=== PATIENT | male | born 1955 | race Caucasian/White ===

== ENCOUNTER 2016-04-23 11:53 | Inpatient (IN) | payer BC ==
--- NOTE | ~2016-04-23 | CR72 ---
[facility] A Service of [facility] & [facility] RADIOLOGY TEXT RESULTS PATIENT: SABINA HEAD LOCATION: [place] [id number] : 57 UNIT #: [id number] AGE: [address]: Dacia Acuña MD SEX: M ORDER DR: [id number] [facility] [address] [place], [place] [address] [id number] I MR#: [id number] Acc #: [id number] NAME: SABINA HEAD. : 1955 SEX: M STUDY DATE/TIME: 04/25/2016 4:00 UNIT: [facility] ROOM: [facility] STUDY DESCRIPTION: CR Chest Single View Portable Attending Physician: Dacia Acuña M.D. Ordering Physician: Dave Rodarte M.D. Primary Care Physician: Dayami Suarez A.P.R.N. MEDICAL IMAGING REPORT This report is preliminary unless electronic signature is present EXAM Portable chest 2 views 04/25/2016 HISTORY Respiratory failure, shortness of breath, COPD exacerbation, intubated, symptoms for 2 days. Follow up infiltrates. Benign essential hypertension. Asthma. FINDINGS The heart is normal in size. Right arm approach PICC line tip is in the superior vena cava. Endotracheal tube is unchanged compared with 04/24/2016. The lungs are clear. There are no pleural effusions. IMPRESSION No significant interval change compared with 04/24/2016. Dictated by... Óscar Maher M.D. THIS IS AN ELECTRONICALLY VERIFIED REPORT Óscar Maher M.D. at 04/26/2016 3:22 AM KRT/ty TD: 04/25/2016 07:42 JOB #: [id number] MEDICAL IMAGING REPORT COPY
--- NOTE | ~2016-04-23 | EKG ---
PATIENT: SABINA HEAD UNIT #: [id number] Ventricular Rate: 104 BPM Atrial Rate: 104 BPM P-R Interval: 122 ms QRS Duration: 86 ms Q-T Interval: 338 ms QTC Calculation(Bezet): 444 ms P Franklin: 65 degrees Calculated R Franklin: 12 degrees Calculated T Franklin: 27 degrees Diagnosis Line: Sinus tachycardia Diagnosis Line: Otherwise normal ECG Diagnosis Line: When compared with ECG of 10-MAY-2016 06:32, Diagnosis Line: Premature atrial complexes are no longer Present Diagnosis Line: Confirmed by CLIFF RIOS MD ([id number]) on Diagnosis Line: 05/17/2016 4:05:36 PM INTERPRETING MD: BLANCA SAMUEL
--- NOTE | ~2016-04-23 | CR72 ---
[facility] A Service of [facility] & [facility] RADIOLOGY TEXT RESULTS PATIENT: SABINA HEAD LOCATION: [place] [address] : 57 UNIT #: [id number] AGE: [address]: Dacia Acuña MD SEX: M ORDER DR: [id number] [facility] [address] [place], [place] [address] [id number] I MR#: [id number] Acc #: [id number] NAME: SABINA HEAD. : 1955 SEX: M STUDY DATE/TIME: 04/28/2016 5:20 UNIT: [facility] ROOM: [facility] STUDY DESCRIPTION: CR Chest Single View Portable Attending Physician: Dacia Acuña M.D. Ordering Physician: Dave Rodarte M.D. Primary Care Physician: Dayami Suarez A.P.R.N. MEDICAL IMAGING REPORT This report is preliminary unless electronic signature is present EXAM Portable chest 04/28/2016 HISTORY Respiratory failure, intubated, follow up infiltrates. Shortness of breath. COPD exacerbation. Benign essential hypertension. Asthma. FINDINGS The cardiac and mediastinal structures are stable compared with 04/27/2016. There has been no change in the position of the life support equipment. The lungs are clear. There are no pleural effusions. IMPRESSION No interval change compared with 04/27/2016. Dictated by... Óscar Maher M.D. THIS IS AN ELECTRONICALLY VERIFIED REPORT Óscar Maher M.D. at 04/28/2016 10:16 PM BELINDA/deep TD: 04/28/2016 06:31 JOB #: [id number] MEDICAL IMAGING REPORT COPY
--- NOTE | ~2016-04-23 | CR72 ---
[facility] A Service of [facility] & [facility] RADIOLOGY TEXT RESULTS PATIENT: SABINA HEAD LOCATION: [place] [address] : 57 UNIT #: [id number] AGE: [address]: Dacia Acuña MD SEX: M ORDER DR: [id number] [facility] [address] [facility]. [place], [place] [address] [id number] I MR#: [id number] Acc #: [id number] NAME: SABINA HEAD : 1955 SEX: M STUDY DATE/TIME: 05/05/2016 05:27 UNIT: [facility] ROOM: [facility] STUDY DESCRIPTION: CR Chest Single View Portable Attending Physician: Dacia Acuña M.D. Ordering Physician: Yvan Lu M.D. Primary Care Physician: Dayami Suarez A.P.R.N. MEDICAL IMAGING REPORT This report is preliminary unless electronic signature is present EXAM Portable chest, 05/05 at 05:27 INDICATION COPD, pneumonia. Respiratory failure. FINDINGS AP portable chest is compared with 05/01/2016. Right arm PICC at the cavoatrial junction. The patient has been extubated. There is mild atelectasis in the bases, slightly increased. The lungs are otherwise clear and there is no pneumothorax. Dictated by... Mio Jin Jr., M.D. THIS IS AN ELECTRONICALLY VERIFIED REPORT Mio Jin Jr., M.D. at 05/06/2016 6:04 AM SHERRI/sridhar TD: 05/05/2016 08:12 JOB #: [id number] MEDICAL IMAGING REPORT COPY
--- NOTE | ~2016-04-23 | CR7 ---
[facility] A Service of [facility] & [facility] & [facility] RADIOLOGY TEXT RESULTS PATIENT: SABINA HEAD LOCATION: [address] : [birth year] UNIT #: [id number] AGE: [address]: Dacia Acuña MD SEX: M ORDER DR: [id number] [facility] [address] [place], [place] [address] [id number] I MR#: [id number] Acc #: [id number] NAME: SABINA HEAD : 1955 SEX: M STUDY DATE/TIME: 04/26/2016 11:38 UNIT: [facility] ROOM: [facility] STUDY DESCRIPTION: CR Abdomen Single AP View Attending Physician: Dacia Acuña M.D. Ordering Physician: Dacia Acuña M.D. Primary Care Physician: Dayami Suarez A.P.R.N. MEDICAL IMAGING REPORT This report is preliminary unless electronic signature is present EXAMINATION AP abdomen DATE 04/26/2016 HISTORY Dobbhoff placement. FINDINGS Dobbhoff tube is malpositioned with the radiopaque tip projecting over the expected location right mainstem bronchus. I called the patient's nurse Kerry regarding this prior to the time of this dictation. Referring physician is already aware and attempting to reposition. Probable minimal linear atelectasis in the left lung base. Right arm approach PICC extends to the lower SVC level and ET tube projects over the upper thoracic trachea. Dictated by... Wendy Whalen M.D. THIS IS AN ELECTRONICALLY VERIFIED REPORT Wendy Whalen M.D. at 04/27/2016 7:29 AM KATHRYN/george TD: 04/26/2016 13:32 JOB #: [id number] MEDICAL IMAGING REPORT COPY
--- NOTE | ~2016-04-23 | CR72 ---
[facility] A Service of [facility] & [facility] RADIOLOGY TEXT RESULTS PATIENT: SABINA HEAD LOCATION: [place] [address] : 57 UNIT #: [id number] AGE: [address]: Dacia Acuña MD SEX: M ORDER DR: [id number] [facility] [address]. [place], [place] [address] [id number] I MR#: [id number] Acc #: [id number] NAME: SABINA HEAD. : 1955 SEX: M STUDY DATE/TIME: 04/29/2016 4:35 UNIT: [facility] ROOM: [facility] STUDY DESCRIPTION: CR Chest Single View Portable Attending Physician: Dacia Acuña M.D. Ordering Physician: Dave Rodarte M.D. Primary Care Physician: Dayami Suarez A.P.R.N. MEDICAL IMAGING REPORT This report is preliminary unless electronic signature is present EXAM Portable chest 04/29/2016 HISTORY Shortness of breath and respiratory failure, intubated, COPD exacerbation. Symptoms for 6 days. Benign essential hypertension, asthma. FINDINGS The cardiac and mediastinal structures are stable compared with 04/28/2016. There has been no change in the position of the life support equipment. The lungs are clear. There are no pleural effusions. IMPRESSION No change compared with 04/28/2016. Dictated by... Óscar Maher M.D. THIS IS AN ELECTRONICALLY VERIFIED REPORT Óscar Maher M.D. at 04/29/2016 3:00 PM BELINDA/deep TD: 04/29/2016 07:06 JOB #: [id number] MEDICAL IMAGING REPORT COPY
--- NOTE | ~2016-04-23 | CR72 ---
[facility] A Service of [facility] & [facility] RADIOLOGY TEXT RESULTS PATIENT: SABINA HEAD LOCATION: [place] [address] : 56 UNIT #: [id number] AGE: [address]: Dacia Acuña MD SEX: M ORDER DR: [id number] [facility] [address] [place], [place] [address] [id number] I MR#: [id number] Acc #: [id number] NAME: SABINA HEAD : 1955 SEX: M STUDY DATE/TIME: 04/26/2016 11:42 UNIT: [facility] ROOM: [facility] STUDY DESCRIPTION: CR Chest Single View Portable Attending Physician: Dacia Acuña M.D. Ordering Physician: Dave Rodarte M.D. Primary Care Physician: Dayami Suarez A.P.R.N. MEDICAL IMAGING REPORT This report is preliminary unless electronic signature is present EXAM AP portable chest DATE: 04/26/2014 at 11:42 HISTORY Follow up Dobbhoff tube removal. COMPARISON AP portable chest 04/26/2016 at 11:13 FINDINGS ET tube tip remains in satisfactory position in the upper thoracic trachea. Right arm approach PICC tip remains in the lower SVC. Heart size is within normal limits. There may be minimal linear subsegmental atelectasis in the left base. No dense consolidation. No pleural effusion, pneumothorax. The Dobbhoff tube has been removed from the right mainstem bronchus since the AP abdomen radiograph 04/26/2016 at 11:38 IMPRESSION 1. The Dobbhoff tube has been removed from the right mainstem bronchus. No pneumothorax. 2. There may be minimal linear subsegmental atelectasis in the left base. No consolidation. Dictated by... Wendy Whalen M.D. THIS IS AN ELECTRONICALLY VERIFIED REPORT Wendy Whalen M.D. at 04/27/2016 7:29 AM [facility]/etienne TD: 04/26/2016 13:23 [facility] A Service of [facility] & [facility] RADIOLOGY TEXT RESULTS PATIENT: SABINA HEAD LOCATION: [address] : [birth year] UNIT #: [id number] AGE: [address]: Dacia Acuña MD SEX: M ORDER DR: JOB #: [id number] MEDICAL IMAGING REPORT COPY
--- NOTE | ~2016-04-23 | CR72 ---
[facility] A Service of [facility] & [facility] RADIOLOGY TEXT RESULTS PATIENT: SABINA HEAD LOCATION: [place] [id number] : 56 UNIT #: [id number] AGE: [address]: Dacia Acuña MD SEX: M ORDER DR: [id number] [facility] [address]. [place], [place] [address] [id number] I MR#: [id number] Acc #: [id number] NAME: SABINA HEAD. : 1955 SEX: M STUDY DATE/TIME: 04/26/2016 5:55 UNIT: [facility] ROOM: [facility] STUDY DESCRIPTION: CR Chest Single View Portable Attending Physician: Dacia Acuña M.D. Ordering Physician: Dave Rodarte M.D. Primary Care Physician: Dayami Suarez A.P.R.N. MEDICAL IMAGING REPORT This report is preliminary unless electronic signature is present EXAM Portable chest INDICATIONS 61-year-old male with respiratory failure. Follow up support lines and tubes. Compared with yesterday. FINDINGS Stable support lines and tubes. No new infiltrates. Heart size stable. IMPRESSION No significant change in appearance of the chest. Dictated by... Tim Whitfield M.D. THIS IS AN ELECTRONICALLY VERIFIED REPORT Tim Whitfield M.D. at 04/27/2016 4:05 PM ROME/etienne TD: 04/26/2016 07:13 JOB #: [id number] MEDICAL IMAGING REPORT COPY
--- NOTE | ~2016-04-23 | CR72 ---
[facility] A Service of [facility] RADIOLOGY TEXT RESULTS PATIENT: SABINA HEAD LOCATION: [facility] 305- : 56 UNIT #: [id number] AGE: [address]: Dacia Acuña MD SEX: M ORDER DR: [id number] [facility] [address]. [place], [place] [address] [id number] I MR#: [id number] Acc #: [id number] NAME: SABINA HEAD. : 1955 SEX: M STUDY DATE/TIME: 05/16/2016 8:44 UNIT: A U ROOM: 305 STUDY DESCRIPTION: CR Chest Single View Portable Attending Physician: Dacia Acuña M.D. Ordering Physician: Yvan Lu M.D. Primary Care Physician: Dayami Suarez A.P.R.N. MEDICAL IMAGING REPORT This report is preliminary unless electronic signature is present INDICATIONS Shortness of air. Pneumonia. Respiratory failure. EXAM Single portable AP view of the chest compared to 05/09/2016 and 05/07/2016. The right PICC remains in place. Heart and mediastinal contours are unchanged. There is a linear area of atelectasis or scarring in the left lower lobe, unchanged. There are no new airspace opacities. No pneumothorax or pleural effusion. IMPRESSION No significant change. There is a linear area of airspace opacity in the left lower lobe/lingula which is fairly similar to the prior study. Dictated by... Rj Cullen M.D. THIS IS AN ELECTRONICALLY VERIFIED REPORT Rj Cullen M.D. at 05/17/2016 8:18 AM BRIAN/etienne TD: 05/16/2016 14:59 JOB #: [id number] MEDICAL IMAGING REPORT COPY
--- NOTE | ~2016-04-23 | CR72 ---
[facility] A Service of [facility] & [facility] RADIOLOGY TEXT RESULTS PATIENT: SABINA HEAD LOCATION: [address] : 56 UNIT #: [id number] AGE: [address]: Dacia Acuña MD SEX: M ORDER DR: [id number] [facility] [address] [place], [place] [address] [id number] I MR#: [id number] Acc #: [id number] NAME: SABINA HEAD : 1955 SEX: M STUDY DATE/TIME: 05/09/2016 10:03 UNIT: [facility] ROOM: [facility] STUDY DESCRIPTION: CR Chest Single View Portable Attending Physician: Dacia Acuña M.D. Ordering Physician: Melissa Simental M.D. Primary Care Physician: Dayami Suarez A.P.R.N. MEDICAL IMAGING REPORT This report is preliminary unless electronic signature is present EXAM Portable chest. INDICATIONS Shortness of breath starting today. FINDINGS Comparison made to prior exam and compared with May 07, 2016. Right-sided PICC line extends into the superior vena cava. There is cardiomegaly and perhaps some mild vascular congestion. Weighted enteric feeding tube is seen and extends into the stomach. There is persistent right basilar consolidation and some left basilar atelectasis. Small right pleural effusion is noted. No pneumothorax is seen and right-sided PICC line extends into the superior vena cava. Overall I think the appearance is probably stable when compared to the prior study. Dictated by... Tennille Loera M.D. THIS IS AN ELECTRONICALLY VERIFIED REPORT Tennille Loera M.D. at 05/09/2016 1:15 PM AFF/dj TD: 05/09/2016 12:25 JOB #: [id number] MEDICAL IMAGING REPORT COPY
--- NOTE | ~2016-04-23 | CT71 ---
[facility] A Service of [facility] RADIOLOGY TEXT RESULTS PATIENT: SABINA HEAD LOCATION: [place] [id number] : 56 UNIT #: [id number] AGE: [address]: Dacia Acuña MD SEX: M ORDER DR: [id number] [place] [id number] [facility]. [place], [place] [address] [id number] I MR#: [id number] Acc #: [id number] NAME: SABINA HEAD. : 1955 SEX: M STUDY DATE/TIME: 04/30/2016 17:24 UNIT: [facility] ROOM: [facility] STUDY DESCRIPTION: CT Head Wo Contrast Attending Physician: Dacia Acuña M.D. Ordering Physician: Dacia Acuña M.D. Primary Care Physician: Dayami Suarez A.P.R.N. MEDICAL IMAGING REPORT This report is preliminary unless electronic signature is present EXAM CT of the head without contrast performed on 04/30/2016 HISTORY 61-year-old male with mechanical ventilation not following commands starting today. TECHNIQUE This CT exam was performed with one or more of the following radiation dose reduction techniques: automatic control, adjustment of mA and/or kV according to patient size, and iterative reconstruction. FINDINGS There is motion artifact but no midline shift, mass effect or acute hemorrhage is appreciated. No extraaxial fluid collection is noted. The osseous skull is intact and the paranasal sinuses and mastoid air cells show some chronic sinus mucosal thickening in the ethmoid, sphenoid and right maxillary sinus. An endotracheal tube is in place. IMPRESSION 1. No acute intracranial abnormality but motion artifact is present. 2. Intact skull. 3. Chronic sinus disease. Dictated by... Crow Lowery M.D. THIS IS AN ELECTRONICALLY VERIFIED REPORT Crow Lowery M.D. at 05/01/2016 2:39 PM RP/rnr TD: 05/01/2016 01:58 JOB #: [id number] [facility] A Service of [facility] RADIOLOGY TEXT RESULTS PATIENT: SABINA HEAD LOCATION: [address] : 56 UNIT #: [id number] AGE: [address]: Dacia Acuña MD SEX: M ORDER DR: MEDICAL IMAGING REPORT COPY
--- NOTE | ~2016-04-23 | CR72 ---
[facility] A Service of [facility] & [facility] RADIOLOGY TEXT RESULTS PATIENT: SABINA HEAD LOCATION: [place] [address] : 56 UNIT #: [id number] AGE: [address]: Dacia Acuña MD SEX: M ORDER DR: [id number] [facility] [address] [facility]. [place], [place] [address] [id number] I MR#: [id number] Acc #: [id number] NAME: SABINA HEAD. : 1955 SEX: M STUDY DATE/TIME: 04/27/2016 2:24 UNIT: [facility] ROOM: [facility] STUDY DESCRIPTION: CR Chest Single View Portable Attending Physician: Dacia Acuña M.D. Ordering Physician: Dave Rodarte M.D. Primary Care Physician: Dayami Suarez A.P.R.N. MEDICAL IMAGING REPORT This report is preliminary unless electronic signature is present EXAM Portable chest, 04/27/2016 HISTORY Shortness of breath, COPD exacerbation, respiratory failure for 4 days, intubated, benign essential hypertension, asthma. FINDINGS The cardiac and mediastinal structures are stable compared with 04/26/2016. There has been an interval placement of nasogastric tube. The tube is coiled within the proximal stomach with the tip directed back at the gastroesophageal junction. There has been no other change in the position of the life-support equipment. Lungs are clear. There are no pleural effusions. Dictated by... Óscar Maher M.D. THIS IS AN ELECTRONICALLY VERIFIED REPORT Óscar Maher M.D. at 04/27/2016 10:18 PM BELINDA/job TD: 04/27/2016 03:18 JOB #: [id number] MEDICAL IMAGING REPORT COPY
--- NOTE | ~2016-04-23 | CR72 ---
[facility] A Service of [facility] & [facility] RADIOLOGY TEXT RESULTS PATIENT: SABINA HEAD LOCATION: [facility]ICCU2-07 : 57 UNIT #: [id number] AGE: [address]: Dacia Acuña MD SEX: M ORDER DR: [id number] [facility] [address] [place], [place] [address] [id number] I MR#: [id number] Acc #: [id number] NAME: SABINA HEAD : 1955 SEX: M STUDY DATE/TIME: 05/06/2016 11:46 UNIT: [facility] ROOM: [facility] STUDY DESCRIPTION: CR Chest Single View Portable Attending Physician: Dacia Acuña M.D. Ordering Physician: Dacia Acuña M.D. Primary Care Physician: Dayami Suarez A.P.R.N. MEDICAL IMAGING REPORT This report is preliminary unless electronic signature is present EXAM Chest portable 05/06/1969 1146 hours HISTORY Shortness of air since 04/23/2016. COMPARISON 05/05/2016 FINDINGS Portable upright chest demonstrates stable right PICC line with tip at the junction of SVC and right atrium. There is a new flexible feeding tube with tip directed rightward in the midline epigastrium likely in the body of the stomach. The lung volumes are improved slightly. There is patchy left retrocardiac density which appears slightly nodular. This could be due to a confluence of shadows but an underlying left lower lobe nodule measuring 1.4 cm cannot be excluded. There is no definite pneumonia, edema or effusion. IMPRESSION 1. Stable right PICC line with tip at junction of SVC and right atrium. 2. There is a new flexible feeding tube present with tip directed rightward in the midline epigastrium in the body of the stomach. 3. Improved aeration at the lung bases. Question 1.4 cm nodule in the medial left retrocardiac lower lobe. Suggest further evaluation with two-view chest film when possible. Consider CT evaluation to exclude a nodule. Dictated by... Sarah Cochran M.D. THIS IS AN ELECTRONICALLY VERIFIED REPORT Sarah Cochran M.D. at 05/06/2016 2:29 PM [facility] A Service of [facility] & [facility] RADIOLOGY TEXT RESULTS PATIENT: SABINA HEAD LOCATION: [address] : [birth year] UNIT #: [id number] AGE: [address]: Dacia Acuña MD SEX: M ORDER DR: NABOR/ty TD: 05/06/2016 12:19 JOB #: [id number] MEDICAL IMAGING REPORT COPY
--- NOTE | ~2016-04-23 | CR6 ---
[facility] A Service of [facility] RADIOLOGY TEXT RESULTS PATIENT: SABINA HEAD LOCATION: [facility] CIC[facility]2 : 57 UNIT #: [id number] AGE: [address]: Dacia Acuña MD SEX: M ORDER DR: [id number] [facility] [address] [place], [place] [address] [id number] I MR#: [id number] Acc #: [id number] NAME: SABINA HEAD : 1955 SEX: M STUDY DATE/TIME: 04/26/2016 15:51 UNIT: [facility] ROOM: [facility] STUDY DESCRIPTION: CR Abdomen Portable Sng View Attending Physician: Dacia Acuña M.D. Ordering Physician: Dave Rodarte M.D. Primary Care Physician: Dayami Suarez A.P.R.N. MEDICAL IMAGING REPORT This report is preliminary unless electronic signature is present EXAM Supine radiograph of the abdomen. DATE OF EXAM 04/26/2016 HISTORY Dobbhoff tube placement. REPORT Supine radiograph of the abdomen is presented. COMPARISON 04/26/2016 FINDINGS Right upper extremity approach PICC unchanged. The flexible feeding tube now extends approximately 12-13 cm below the diaphragm terminating at the level of the gastric fundus pointed upward into the left. For attempted placement in mid to distal stomach, it could be advanced approximately 10-15 cm and reassessed radiographically. Visualized cardiomediastinal contours unremarkable. Lung bases are clear. Visualized bowel gas pattern within normal limits. No free air. Dictated by... George Stevens M.D. THIS IS AN ELECTRONICALLY VERIFIED REPORT George Stevens M.D. at 04/27/2016 4:30 PM EDGAR/joan TD: 04/26/2016 20:47 [facility] A Service of [facility] RADIOLOGY TEXT RESULTS PATIENT: SABINA HEAD LOCATION: [facility]2 CICCU2 : 57 UNIT #: [id number] AGE: [address]: Dacia Acuña MD SEX: M ORDER DR: JOB #: [id number] MEDICAL IMAGING REPORT COPY
--- NOTE | ~2016-04-23 | CT16 ---
[facility] A Service of [facility] RADIOLOGY TEXT RESULTS PATIENT: SABINA HEAD LOCATION: [facility] 305- : [birth year] UNIT #: [id number] AGE: [address]: Dacia Acuña MD SEX: M ORDER DR: [id number] [facility] [address] [facility]. [place], [place] [address] [id number] I MR#: [id number] Acc #: [id number] NAME: SABINA HEAD. : 1955 SEX: M STUDY DATE/TIME: 05/16/2016 20:12 UNIT: C3A PCU ROOM: [facility] STUDY DESCRIPTION: CT Angio Chest for PE Attending Physician: Dacia Acuña M.D. Ordering Physician: Dacia Acuña M.D. Primary Care Physician: Dayami Suarez A.P.R.N. MEDICAL IMAGING REPORT This report is preliminary unless electronic signature is present EXAM CT angiography of the chest with contrast pulmonary embolism protocol 05/16/2016 at 20:12 HISTORY 61-year-old male shortness of breath, cough, sudden onset desaturations today. COPD. COMPARISON AP portable chest 05/16/2016 08:44. CT chest 04/24/2016. TECHNIQUE This CT examination was performed with one or more of the following radiation dose reduction techniques: automatic exposure control, adjustment of mA and/or kV according to patient size, and iterative reconstruction. PROCEDURE 2 mm axial images through the chest after IV contrast administration. 3-D coronal MIP reformatted images were obtained. FINDINGS No pulmonary embolism. No thoracic aortic aneurysm or aortic dissection. Mild calcific atherosclerosis within the thoracic aorta. Coronary artery calcifications. Heart size within normal limits. No pericardial effusion or pleural effusion. No pathologically enlarged lymph nodes. Mildly prominent right lower paratracheal node contains coarse calcifications consistent with benign granulomatous findings. Thyroid gland is within normal limits. Centrilobular emphysematous changes are present. Airspace disease changes have developed in the posterior medial bilateral lower lobes, right slightly greater than left. There is mild cylindrical bronchiectasis and STS. [facility] A Service of [facility] RADIOLOGY TEXT RESULTS PATIENT: SABINA HEAD LOCATION: [facility] 305-01 : [birth year] UNIT #: [id number] AGE: [address]: Dacia Acuña MD SEX: M ORDER DR: bronchial wall thickening in the bilateral lower lobes. Tree-in-bud nodular densities are also present in the bilateral lower lobes. There is minimal linear subsegmental atelectasis or scarring in the lingula. Right arm approach PICC tip extends to the cavoatrial junction. No visible pneumothorax. Tiny left renal cyst. Moderate calcific atherosclerosis in the suprarenal abdominal aorta without aneurysm. No acute osseous abnormalities. IMPRESSION 1. Posterior medial bibasilar airspace disease suggesting changes of pneumonia or aspiration. 2. Tree-in-bud nodular densities in the bilateral lower lobes suggesting small airways infectious-inflammatory process. Bilateral lower lobe bronchiectasis and bronchial wall thickening suggesting small airways infectious inflammatory change as well. 3. No pulmonary embolism, aortic aneurysm or dissection. 4. Mild generalized centrilobular emphysema. Dictated by... Wendy Whalen M.D. THIS IS AN ELECTRONICALLY VERIFIED REPORT Wendy Whalen M.D. at 05/17/2016 2:09 PM KATHRYN/deep TD: 05/17/2016 09:28 JOB #: [id number] MEDICAL IMAGING REPORT COPY
--- NOTE | ~2016-04-23 | CR160 ---
[facility] A Service of [facility] & [facility] RADIOLOGY TEXT RESULTS PATIENT: SABINA HEAD LOCATION: [place] [id number] : [birth year] UNIT #: [id number] AGE: [address]: Dacia Acuña MD SEX: M ORDER DR: [id number] [place] [id number] [facility]. [place], [place] [address] [id number] I MR#: [id number] Acc #: [id number] NAME: SABINA HEAD. : 1955 SEX: M STUDY DATE/TIME: 05/03/2016 11:16 UNIT: [facility] ROOM: [facility] STUDY DESCRIPTION: CR Intro GI Tube Place SI Attending Physician: Dacia Acuña M.D. Ordering Physician: Yvan Lu M.D. Primary Care Physician: Dayami Suarez A.P.R.N. MEDICAL IMAGING REPORT This report is preliminary unless electronic signature is present EXAM CR Intro GI Tube INDICATIONS Enteric tube placement under fluoroscopy. FINDINGS Fluoroscopic guidance was provided for placement of a nasogastric tube. The nasogastric tube was placed below the diaphragm with tip in the stomach. Fluoroscopic time 0.4 minutes. 1 image acquired. IMPRESSION 1. Fluoroscopically placed nasogastric tube. 2. The tip is below the diaphragm in the stomach. Dictated by... Rj Cullen M.D. THIS IS AN ELECTRONICALLY VERIFIED REPORT Rj Cullen M.D. at 05/03/2016 5:04 PM BRIAN/george TD: 05/03/2016 16:17 JOB #: [id number] MEDICAL IMAGING REPORT COPY
--- NOTE | ~2016-04-23 | A ---
[facility] Nutrition Therapy DATE: 04/25/16 Patient: SABINA HEAD Physician: KAUSHAL Address: [address] [place] [address] Room/Bed: [address], Zip: [place] [address] Admit Date: 04/23/16 Date of : 57 Height: 5 8 Weight: 211 96 NUTRITIONAL ASSESSMENT: REASON: NPO IN ICU ASSESSMENT PT IS 61 Y.O. MALE ADMITTED FOR COPD EXAC, ACUTE ON CHRONIC RESPIRATORY FAILURE PMH: HTN, RA, PAD, COPD, HLD, ASTHMA, FORMER SMOKER Anthropometrics: 5'8", WT: 216# (98 KG), BMI: 32.8 Labs: GLU: 149, BUN: 27, NA+:131, CREAT: 1.5 Meds: VERSED, FENTANYL, NACL, D5%, LIPITOR, SOLU-MEDROL, NACL I/O & Bowel function: 1804/1280 Skin Integrity: NO ISSUES NOTED EDEMA: BLE 1+ EDEMA; PEDAL TRACE EDEMA Estimated Nutrition Needs: 8478-4734 KCAL (18-22 KCAL/KG BW) 98-117 G PRO (1.0-1.2 G PRO KG BW) FLUIDS CONSISTENT W/KCAL NEEDS OR MANAGE PER MD Assessment: CHART REVIEWED AND EVENTS NOTED. PT SEEN FOR NPO IN ICU ASSESSMENT. PT CURRENTLY INTUBATED AND SEDATED 2' DX. PT TRANSFER FROM 2' DX. FAMILY IN ROOM REPORTED PT TO HAVE GOOD PO INTAKE AND APPETITE PRIOR TO ADMIT. FAMILY REPORTED NO DIET QUESTIONS AT THIS TIME. PER RN AND CHART, NO CURRENT PLANS IN PLACE FOR ALTERNATIVE NUTRITION SUPPORT AT THIS TIME. RD TO FOLLOW. SEE RECOMMENDATIONS BELOW. Dx: INADEQUATE ORAL INTAKE R/T DX, CURRENT CONDITION AEB PT INTUBATED AND SEDATED, NPO STATUS, ALTERED LAB VALUES. Intervention: 1. NPO Monitoring, Evaluation and Goals: 1. ENTERAL NUTRITION; TOLERATE 100% ESTIMATED NUTRIENT NEEDS; TOLERATE EN AT GOAL W/NO SIGNS OF INTOLERANCE 2. PO INTAKE; PROVIDE AND CONSUME ADEQUATE NUTRITION W/NO C/O N/V/D (PO>50%) 3. LABS; WNL: GLU, NA+ 4. GI; PROMOTE REGULAR BOWEL FUNCTION MONITOR: [facility] DATE: 02/13/17 Patient: SABINA HEAD Physician: KAUSHAL Address: [address] [place] [address] Room/Bed: [address], Zip: [place] [address] Admit Date: 04/23/16 Date of : 57 Height: 5 8 Weight: 211 96 -WEIGHTS -PLANS FOR SUPPORT -EXTUBATION? -LABS Recommendations: 1. ONCE MEDICALLY FEASIBLE AND PT EXTUBATED, ADVANCE DIET PER IRON HANDLER + HH DIET 2' PMH 2. IF PT REMAINS INTUBATED FOR >24 HOURS, CONSIDER PLACING DHT AND BEGIN ALTERNATIVE NUTRITION SUPPORT OF JEVITY 1.5 @ 20 ML/HR, ADVANCE 10 ML q 4 HOURS TO GOAL RATE OF 55 ML/HR + SUGAR-FREE PROSTAT ONCE DAILY -PROVIDES 2080 KCAL, 99 G PRO, 1003 ML FREE H20 ADD FREE H20 FLUSHES PER MD 3. PLEASE OPTIMIZE BLOOD SUGAR CONTROL-ELEVATED 2' STEROIDS? -CONTINUE TO MONITOR ELECTROLYTES RD WILL F/U PER PROTOCOL PT IS SEVERELY COMPROMISED Respectfully, BRANDO GASCA MS, RD, LD Food and Nutritional Services [facility] [place] [facility] cc: client file
--- NOTE | ~2016-04-23 | DS ---
Unit #: [id number] #: [id number] Patient: OSWALDO BLUNT [id number] [address] [place], [place] [address] [id number] I MR#: [id number] NAME: OSWALDO BLUNT. ROOM: 305 Age: 61 Sex: M Admission Date: 04/23/2016 : 1955 Discharge Date: 05/17/2016 Attending Physician: Dacia Acuña M.D. Primary Care Physician: Dayami Suarez A.P.R.N. DISCHARGE SUMMARY DISPOSITION Transfer to [facility]. FINAL DIAGNOSES 1. Acute hypoxic hypercarbic respiratory failure. 2. Acute exacerbation of chronic obstructive pulmonary disease. 3. Acute bronchitis. 4. Possible aspiration pneumonia. 5. Acute kidney injury. 6. Alcohol abuse history, was on alcohol withdrawal protocol in the beginning of his stay. 7. Hypertension. 8. Toxic-metabolic encephalopathy. 9. Diabetes mellitus type 2. 10. Anemia. 11. Ventricular tachycardia. 12. Ejection fraction 50% to 55%. 13. Status post cardiac catheterization which shows: Proximal is normal. Left ventricle normal. Left main normal. Left anterior descending normal. Left circumflex is codominant. Right coronary artery mid 75%. Posterior descending artery branch 99%. 14. Non-ST elevation with two vessel coronary artery disease. 15. Severe chronic obstructive pulmonary disease. DIET Most recent video swallow study done on 05/17/16 shows patient can be changed to regular consistency. No mixed consistencies. [place] thick liquids with other dietary restrictions like no straw and chin tuck. CONSULTATIONS DURING HOSPITALIZATION 1. Dr. Lu from pulmonary services. 2. Dr. Gilman and Dr. Simental from cardiology services. HISTORY Mr. Oswaldo Blunt is a 61-year-old male with multiple medical problems. He was admitted by my colleague Dr. Arreola with a complaint of sudden onset of shortness of breath. Patient was admitted to ICU with [id number] respiratory failure and acute exacerbation of COPD. Patient was started on broad spectrum IV antibiotics. He was very lethargic. Patient was intubated for many days. Very slow recovery. Patient was also started on alcohol withdrawal protocol because of his history of alcohol abuse. Patient was transferred to telemetry and then had to be readmitted to ICU because of worsening of lung status. Tabitha Shannon Unit #: [id number] #: [id number] Patient: OSWALDO BLUNT and Cayden Shannon have been monitoring the patient from respiratory point of view and antibiotics. Patient has completed the course of antibiotics. During hospitalization patient had v-tach, was consulted by Dr. Simental. Patient had a cardiac catheterization done and had the two vessel disease. Patient was planned to have PCI done on 05/16/16, but he suddenly had worsening of his respiratory status and was on 12 L Oxymizer. Patient's CTA of the chest was repeated again which shows posterior medial bibasilar airspace disease suggesting changes of pneumonia or aspiration. Tree-in-bud nodular densities in the bilateral lower lobes suggesting small airways infectious and inflammatory process. Bilateral lower lobe bronchiectasis and bronchial wall thickening. No pulmonary embolism. DISCHARGE MEDICATIONS Discharge medications are: 1. Albuterol nebulizer treatment q.4 h. p.r.n. 2. Albuterol and ipratropium mini-neb treatment q.i.d. 3. Symbicort 160/4.5 two puff inhaler b.i.d. 4. Solu-Medrol 40 mg IV q.24 h. 5. Tylenol 650 q.6 h. p.r.n. 6. Benicar 10 mg q.h.s. 7. Lovenox 60 mg subcu q.12 h. 8. Zoloft 50 mg daily. 9. Librium 25 mg t.i.d. p.r.n. for agitation. 10. Lopressor 12.5 mg q.12 h. 11. Colace 100 mg b.i.d. 12. Milk of magnesia q.12 h. p.r.n. 13. Guaifenesin 10 mL q.6 h. 14. Lipitor 80 mg q.h.s. 15. Aspirin 81 mg daily. 16. Percocet 5/325 one tablet q.4 h. p.r.n. for pain. 17. Brilinta 90 mg q.12 h. 18. Protonix 40 mg IV daily. 19. Sodium chloride nebulizer treatment b.i.d. 20. Nitroglycerin 0.4 mg sublingual q. five minutes p.r.n. 21. Lidocaine/dexamethasone/hydrocodone oral wash q.i.d. DIAGNOSTIC STUDIES LABORATORY: Workup on discharge: ABG on 12 L Oxymizer shows pH 7.47, pCO2 39.9, pO2 56.4, bicarbonate 29.5, oxygen saturation is 89.8%. Glucose is 165. BMP shows sodium 136, potassium 3.3, chloride 101, BUN 13, creatinine 0.6. CBC shows WBC 6.4, hemoglobin 9.6, hematocrit 29.1 and platelet count of 250. IMAGING: Most recent chest x-ray on 05/16/16 shows no significant change. There is linear area of airspace opacity in the left lower lobe. PHYSICAL EXAMINATIONON THE DAY OF DISCHARGE VITAL SIGNS: Blood pressure 108/62. Respiratory rate 18. Pulse is 86. Temperature 98.4. GENERAL: The patient is awake and alert. CHEST: Chest has decreased air entry bilateral. Poor pulmonary effort. CVS: S1, S2 positive, regular rhythm. ABDOMEN: Abdomen is soft. EXTREMITIES: Negative edema. DISCHARGE INSTRUCTIONS 1. The patient is being discharged to [facility] as per family's request. Unit #: [id number] #: [id number] Patient: OSWALDO BLUNT 2. (1) Ali to take over patient's care in [facility]. 3. Will discuss with the patient's family. Dictated by... John Vazquez/kinsey TD: 05/17/2016 15:04 JOB #: [id number] DISCHARGE SUMMARY X Dacia Acuña MD X DISCHARGE SUMMARY
--- NOTE | ~2016-04-23 | CR71 ---
[facility] A Service of [facility] & [facility] RADIOLOGY TEXT RESULTS PATIENT: SABINA HEAD LOCATION: [address] : [birth year] UNIT #: [id number] AGE: [address]: Dacia Acuña MD SEX: M ORDER DR: [id number] [facility] [address] [facility] [place], [place] [address] [id number] I MR#: [id number] Acc #: [id number] NAME: SABINA HEAD. : 1955 SEX: M STUDY DATE/TIME: 05/07/2016 7:06 UNIT: [facility] ROOM: [facility] STUDY DESCRIPTION: CR Chest Single View Attending Physician: Dacia Acuña M.D. Ordering Physician: Yvan Lu M.D. Primary Care Physician: Dayami Suarez A.P.R.N. MEDICAL IMAGING REPORT This report is preliminary unless electronic signature is present EXAM AP portable chest 05/07/2016. HISTORY Respiratory failure. Worsening shortness of air. TECHNIQUE AP portable chest x-ray. FINDINGS The exam shows patchy infiltrate and atelectasis in the lung bases, new or increased since 05/05/2016 and 05/06/2016. Previous endotracheal tube has been removed. Mid- and upper lungs remain clear. No visible dense airspace consolidation or pleural effusion. PICC remains in good position, and the feeding tube extends below the diaphragm. IMPRESSION Mild bibasilar infiltrate and atelectasis. Dictated by... Crow Kinsey M.D. THIS IS AN ELECTRONICALLY VERIFIED REPORT Crow Kinsey M.D. at 05/07/2016 3:01 PM KRISH/elif TD: 05/07/2016 11:08 JOB #: [id number] MEDICAL IMAGING REPORT COPY
--- NOTE | ~2016-04-23 | FU ---
[facility] Nutrition Therapy DATE: 05/03/16 Patient: SABINA HEAD Physician: KAUSHAL Address: [address] [place] [address] Room/Bed: [address], Zip: [place] [address] Admit Date: 04/23/16 Date of : [birth year] Height: 5 8 Weight: 211 96 NUTRITION MONITORING/FOLLOW-UP: Reason: ENTERAL NUTRITION FOLLOW UP Anthropometrics: Ht: 68" Wt: 98.2 kg BMI: 32.8 Wt 05/03: 96 kg Labs: Gluc 118 BUN 32 Accuchecks 118-124 Meds: Protonix, colace, lipitor, solu-medrol, MOM, novolog I&O's: , last BM 04/23 Skin: Bruise LLE Redness/ rash to groin/ scrotum Edema: Pedal/ ankle 1+ Estimated Nutrition Needs: 8496-2994 kcals (18-22 grams/kg) 98-117 grams protein (1.0-1.2 grams/kg) Assessment: Chart reviewed, events noted. Pt was extubated on 05/01, and OG tube was pulled out at this time d/t extubation. Pt failed his CLINICAL CONSULTANT evaluation. CLINICAL CONSULTANT recommends that the pt remain NPO at this time. DHT was placed this AM, and Jevity 1.5 resumed at 20 mL/hr. Pt has AMS, not appropriate for nutrition interview or diet education at this time. Please see recommendations below. Dx: Inadequate oral intake RT Dx, clinical condition AEB failed CLINICAL CONSULTANT, NPO, Pt receiving enteral nutrition. Intervention: 1. Enteral nutrition 2. CLINICAL CONSULTANT Monitoring, Evaluation and Goals: 1. Enteral nutrition; provide >80% goal volume 2. Labs; WNL 3. Weight; prevent unintentional weight loss 4. GI; promote bowel regularity Recommendations: [facility] Nutrition Therapy DATE: 05/03/16 Patient: SABINA HEAD Physician: KAUSHAL Address: [address] [place] [address] Room/Bed: [address], Zip: [place] [address] Admit Date: 04/23/16 Date of : 57 Height: 5 8 Weight: 211 96 1. Increase Jevity 1.5 by 10 mL q 4 hrs as tolerated to goal of 60 mL/hr + Prostat once daily to provide: 2260 kcals/ 107 grams protein/ 1094 mL free H20 2. Free H20 flushes per MD orders. 3. Continue CLINICAL CONSULTANT as appropriate to determine if the pt can tolerate PO intake. 4. Optimize the pt's bowel regimen, as he has not had a BM since 04/23. Status: Pt is at moderate nutritional risk. RD will continue to follow. Respectfully, JULITO SPENCE RD, LD Food and Nutritional Services [facility] cc: client file
--- NOTE | ~2016-04-23 | EKG ---
PATIENT: SABINA HEAD UNIT #: [id number] Ventricular Rate: 100 BPM Atrial Rate: 100 BPM P-R Interval: 120 ms QRS Duration: 78 ms Q-T Interval: 322 ms QTC Calculation(Bezet): 415 ms P [place]: 65 degrees Calculated R [place]: 13 degrees Calculated T [place]: 53 degrees Diagnosis Line: Sinus rhythm with Premature atrial complexes Diagnosis Line: Otherwise normal ECG Diagnosis Line: When compared with ECG of 23-APR-2016 11:46, Diagnosis Line: Premature atrial complexes are now Present Diagnosis Line: QRS duration has decreased Diagnosis Line: Confirmed by VIANNEY CANSECO MD ([id number]) on Diagnosis Line: 05/10/2016 11:46:07 AM INTERPRETING : MARANDA
--- NOTE | ~2016-04-23 | EKG ---
PATIENT: SABINA HEAD UNIT #: [id number] Ventricular Rate: 110 BPM Atrial Rate: 110 BPM P-R Interval: 152 ms QRS Duration: 98 ms Q-T Interval: 334 ms QTC Calculation(Bezet): 452 ms P [place]: 72 degrees Calculated R [place]: 46 degrees Calculated T [place]: 64 degrees Diagnosis Line: Sinus tachycardia Diagnosis Line: Otherwise normal ECG Diagnosis Line: When compared with ECG of 13-AUG-2009 08:00, Diagnosis Line: No significant change was found Diagnosis Line: Confirmed by REGIS BERGER MD ([id number]) on 04/23/2016 Diagnosis Line: 11:25:29 PM INTERPRETING MD: CELINE SAMUEL
--- NOTE | ~2016-04-23 | CR72 ---
[facility] A Service of [facility] & [facility] RADIOLOGY TEXT RESULTS PATIENT: SABINA HEAD LOCATION: [place] [address] : [birth year] UNIT #: [id number] AGE: [address]: Dacia Acuña MD SEX: M ORDER DR: [id number] [facility] [address] [facility]. [place], [place] [address] [id number] I MR#: [id number] Acc #: [id number] NAME: SABINA HEAD : 1955 SEX: M STUDY DATE/TIME: 04/24/2016 21:45 UNIT: [facility] ROOM: [facility] STUDY DESCRIPTION: CR Chest Single View Portable Attending Physician: Dacia Acuña M.D. Ordering Physician: Autumn Chiu M.D. Primary Care Physician: Dayami Suarez A.P.R.N. MEDICAL IMAGING REPORT This report is preliminary unless electronic signature is present EXAM Portable chest. INDICATIONS Endotracheal tube placement. Shortness of air. 1-day duration. FINDINGS Single portable AP view of the chest compared to 04/23/2016. Heart and mediastinal contours are unchanged. There is some chronic interstitial opacities in both lungs. No new pulmonary opacities. No pleural effusion. IMPRESSION No acute cardiopulmonary findings. No interval change. Dictated by... Rj Cullen M.D. THIS IS AN ELECTRONICALLY VERIFIED REPORT Rj Cullen M.D. at 04/25/2016 11:40 AM Valorie TD: 04/25/2016 06:29 JOB #: [id number] MEDICAL IMAGING REPORT COPY
--- NOTE | ~2016-04-23 | CO ---
Unit #: [id number] #: [id number] Patient: SABINA BLUNT [id number] [address] [place], [place] [address] [id number] I MR#: [id number] NAME: SABINA BLUNT. ROOM: [facility] Age: 61 Sex: M Admission Date: 04/23/2016 : 1955 Attending Physician: Dacia Acuña M.D. Primary Care Physician: Dayami Suarez A.P.R.N. Consultation Date: 05/09/2016 CONSULTATION REPORT REASON FOR CONSULTATION Ventricular tachycardia. HISTORY OF PRESENT ILLNESS This is a 61-year-old white male with a history of hypertension, hyperlipidemia, previous right carotid endarterectomy a couple of years ago, COPD, alcohol abuse, who has been in the hospital for several days being treated for acute hypoxic respiratory failure, aspiration pneumonia and alcohol withdrawal. The patient had a run of ventricular tachycardia. He is currently in the unit. He is currently on BiPAP. Cardiology has been asked to assist with evaluation and management. The patient can answer some simple questions. He denies any chest pain, pain in his neck, bilateral jaw, shoulders, arm or elbow. He denies feeling any palpitations, dizziness, presyncope or syncope. He sates he has never been told he had any significant heart problems. He may have had a stress test years ago and that was normal. PAST MEDICAL HISTORY 1. Hypertension. 2. Hyperlipidemia. 3. Peripheral vascular disease. 4. History of carotid disease. Had a right carotid endarterectomy May 2014. 5. COPD/asthma. 6. Alcohol abuse. 7. Stress test years ago according to patient, told it was normal. 8. Osteoarthritis. 9. Reformed smoker. PAST SURGICAL HISTORY 1. Right carotid endarterectomy 2014. 2. Right total hip replacement. HOME MEDICATIONS 1. Zoloft 50 mg p.o. daily. 2. Meloxicam 15 mg p.o. daily. 3. Benicar 20 mg p.o. daily. 4. Crestor 20 mg p.o. daily. ALLERGIES No known drug allergies. SOCIAL HISTORY The patient lives with his family. He drinks about at least six beers a Unit #: [id number] #: [id number] Patient: ADILENE,SABINA S day. No tobacco or illicit drug abuse. He was a prior smoker, hasn't smoked in a few years. FAMILY HISTORY Does not know if any of has parents or siblings with significant heart problems. REVIEW OF SYSTEMS See details in HPI. PHYSICAL EXAMINATION GENERAL: On exam, Mr. Blunt is a 61-year-old white male in no acute respiratory distress. He is on BiPAP, answering simple questions. Has some slight poor memory recall. VITAL SIGNS: Blood pressure 119/67, heart rate is 102, respirations 16, temperature 99.1, O2 sats 90% to 96% on room BiPAP. NECK: Trachea midline. No thyromegaly or lymphadenopathy. Normal carotid upstrokes. No jugular venous distention. HEART: S1, S2. Regular rate and rhythm. No clicks, murmurs or rubs. LUNGS: Diminished with scattered rhonchi. ABDOMEN: Slightly obese, nontender. EXTREMITIES: Pedal pulses are palpable. No pedal edema. DIAGNOSTIC STUDIES LABORATORY: ABGs done on 05/08 - pH 7.398, pCO2 68.9, pO2 62.2, O2 sat 91.7 on BiPAP 14/6. Glucose is 132, BUN 24, creatinine 0.6, eGFR above 60, sodium is 146, potassium 3.9, chloride 100, calcium 8.9. WBC 10.3, hemoglobin 10.4, hematocrit 31.9 and platelets 204. Urinalysis unremarkable. Sputum culture final - normal respiratory anthony present. IMAGING: Latest chest x-ray shows cardiomegaly and perhaps some mild vascular congestion, persistent right basilar consolidation and some left basilar atelectasis. Small right pleural effusion is noted. No pneumothorax. Chest x-ray stable. CARDIOVASCULAR: EKG shows sinus rhythm with premature atrial complexes, ventricular rate 82 beats per minute, otherwise nothing acute. Telemetry showed a long run of nonsustained ventricular tachycardia of at least 33 beats in a row. Otherwise, sinus tachycardia at normal sinus rhythm. IMPRESSION 1. Acute hypoxic respiratory failure. 2. Aspiration pneumonia. 3. Alcohol withdrawal. 4. Nonsustained ventricular tachycardia. 5. History of hypertension. 6. Hyperlipidemia. 7. Carotid disease. 8. Alcohol abuse and reformed smoker. Unit #: [id number] #: [id number] Patient: SABINA BLUNT S PLAN 1. Cardiology consult to assist with evaluation and management. 2. On today's labs, patient's potassium and magnesium are within normal limits. Patient's blood pressure is stable so can add low dose beta annamaria to control ventricular tachycardia. Will put parameters. 3. Obtain a 2D echo to evaluate his LVEF to evaluate for alcoholic cardiomyopathy. 4. Continue to monitor cardiac enzymes which initially were negative. 5. Obtain a fasting lipid profile and TSH. Done back on April 24 of this year was 0.47. Will also add a BMP to his labs this morning to make sure that he is not in fluid overload which, on exam, does not appear to be an overload. 6. When patient is more stable from a respiratory status, he will need ischemic heart disease work. 7. Encouraged patient to completely quit alcohol use. 8. Continue patient on daily Lovenox. He is on Benicar and a statin. 9. Pulmonology is managing his pneumonia and his respiratory failure. 10. Further recommendations pending per Dr. Simental. Thank you very much for allowing us to assist in his care. Dictated by... Justo SalomonPPacoRPacoN. for John Simpson/hilary TD: 05/11/2016 07:59 JOB #: [id number] CONSULTATION REPORT X Betzy Leal APRN CONSULTATION REPORT
--- NOTE | ~2016-04-23 | HP ---
Unit #: [id number] #: [id number] Patient: SABINA HEAD [id number] [address] [place], [place] [address] [id number] I MR#: [id number] NAME: SABINA HEAD. ROOM: [id number] Age: 61 Sex: M Admission Date: 04/23/2016 : 1955 Attending Physician: Maurice Arreola M.D. Primary Care Physician: Dayami Suarez A.P.R.N. HISTORY AND PHYSICAL HISTORY OF PRESENT ILLNESS The patient is a 61-year-old white male, prior smoker, history of COPD, peripheral arterial disease, status post right carotid endarterectomy, osteoarthritis, status post right total hip replacement, hyperlipidemia, hypertension, sudden onset of shortness of air, no fever, no chest pain, no lower extremity edema, dry cough, positive for ill contacts, went to the [facility], referred to the emergency room because of severe hypoxemia. Here he is afebrile, vital signs are stable. His PaO2 was only 57.9 on 4 L. Chest x-ray reportedly shows no active disease. BNP and D-dimer are normal. Cardiac enzymes were normal. White count was 12.2. Sodium was 128. He is admitted for further evaluation and therapy. ALLERGIES Plavix. MEDICATIONS His medications prior to admission are unknown at this time although he is on Tudorza, albuterol, Benicar, Crestor, Mobic. PAST SURGICAL HISTORY 1. Right carotid endarterectomy. 2. Right total hip replacement. PAST MEDICAL HISTORY 1. COPD. 2. Asthma. 3. Osteoarthritis. 4. Hyperlipidemia. 5. Hypertension. SOCIAL HISTORY Prior smoker, drinks six beers a day, no street drugs, employed. FAMILY HISTORY Family history is noncontributory. PHYSICAL EXAMINATION GENERAL: On physical exam he is awake, alert, oriented x3, in no acute distress. VITAL SIGNS: Afebrile, pulse 101, respirations 24, blood pressure 145/72. HEENT: HEENT is unremarkable except for nasal cannula in place. NECK: Neck was supple, without JVD, bruits, adenopathy or thyromegaly. CHEST: Diffusely decreased breath sounds with end-expiratory wheezes and Unit #: [id number] #: [id number] Patient: SABINA HEAD very little airflow. HEART: Heart has a regular rate and rhythm, without any murmurs, rubs or gallops. ABDOMEN: Abdomen was soft, nondistended, nontender, with positive bowel sounds and no hepatosplenomegaly. EXTREMITIES: Showed no cyanosis, clubbing or edema. GENITOURINARY: Deferred. ANO-RECTAL: Deferred. NEUROLOGIC: Exam is grossly intact. DIAGNOSTIC STUDIES LABORATORY VALUES: Cardiac enzymes normal x2. White count 12.2, the rest of the CBC is normal. CMP normal except for a sodium of 128, a D-dimer of 413. INR is 1.1. BNP 128. On 4 L his pH is 7.3, pCO2 was 61. PaO2 is 57.9. IMAGING: Chest x-ray I have no report. CARDIOVASCULAR: EKG shows a sinus tachycardia at 110 beats per minute but is otherwise within normal limits. IMPRESSION 1. Exacerbation of chronic obstructive pulmonary disease. 2. Rccgv-yw-zbnscwg respiratory failure. 3. Hypoxemia. 4. Hypercarbia. 5. Respiratory acidosis. 6. Peripheral arterial disease, status post right carotid endarterectomy. 7. Chronic obstructive pulmonary disease. 8. Hypertension. 9. Hyperlipidemia. PLAN 1. IV steroids. 2. IV antibiotics. 3. Supplemental oxygen. 4. Respiratory treatments. 5. Pulmonary consult. 6. DVT prophylaxis. 7. Further evaluation pending results of the above. Dictated by John Osorio/kinsey TD: 04/23/2016 15:13 JOB #: [id number] Unit #: [id number] #: [id number] Patient: SABINA HEAD HISTORY AND PHYSICAL X Maurice Arreola MD X HISTORY AND PHYSICAL
--- NOTE | ~2016-04-23 | EKG ---
PATIENT: SABINA HEAD UNIT #: [id number] Ventricular Rate: 82 BPM Atrial Rate: 82 BPM P-R Interval: 124 ms QRS Duration: 94 ms Q-T Interval: 358 ms QTC Calculation(Bezet): 418 ms P [place]: 62 degrees Calculated R [place]: 31 degrees Calculated T [place]: 55 degrees Diagnosis Line: Sinus rhythm with Premature atrial complexes Diagnosis Line: Otherwise normal ECG Diagnosis Line: When compared with ECG of 09-MAY-2016 07:34, Diagnosis Line: (unconfirmed) Diagnosis Line: No significant change was found Diagnosis Line: Confirmed by VIANNEY CANSECO MD ([id number]) on Diagnosis Line: 05/10/2016 12:05:33 PM INTERPRETING MD: MARANDA
--- NOTE | ~2016-04-23 | FU ---
[facility] DATE: 05/06/16 Patient: SABINA HEAD Physician: KAUSHAL Address: [address] [place] [address] Room/Bed: [address] [place] [address], Zip: [place] [address] Admit Date: 04/23/16 Date of : [birth year] Height: 5 8 Weight: 216 98.42 NUTRITION MONITORING/FOLLOW-UP: Reason: Enteral nutrition f/u Anthropometrics: current wt: 98.4 kg Labs: Glucose 125, POC 102, BUN 25 Meds: Zosyn, Solu-Medrol, Colace, Milk of Mg, Novolog (low SSI), PPI I&O's: , last BM 05/05 Skin: Issues noted, pedal edema 1+ Estimated Nutrition Needs: 0946-8931 kcals per day (18-22 kcals/kg IBW) 98-117 g protein per day (1-1.2 g/kg admission wt) Fluids consistent with kcal needs or per MD Assessment: Chart reviewed, events noted. Patient is on venturi mask, was on nasal cannula yesterday. Patient is still weak and lethargic, note elevated CO2 levels. Patient remains on enteral feeds due to repeat failed swallow eval- Jevity 1.5 currently running at goal rate of 60 ml/hr with daily Prostat- tolerating well. Patient has received 76% goal volume x 72 hours per pump history, almost meeting nutritional goal of > 80%. Glucose well controlled with low SSI, noted to be on Solu-medrol. Nutrition dx remains, see recs below. 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 > 80% goal EN volume x 24-72 hrs. 2. Labs WNL. 3. Prevent loss of lean body mass. Monitor: Per protocol, criteria to determine if above goals met Recommendations: 1. Continue current EN regimen: Jevity 1.5 @ 60 ml/hr + daily Prostat per DHT. Optimize EN schedule so the patient receives > 80% goal volume each day (goal volume is 1440 ml/day). [facility] DATE: 02/24/17 Patient: SABINA HEAD Physician: KAUSHAL Address: [address] [facility] Room/Bed: [address] [place] [address], Zip: [place] [address] Admit Date: 04/23/16 Date of : [birth year] Height: 5 8 Weight: 216 98.42 2. FLIGHT TEST SUPERVISOR to re-eval as appropriate. If patient deemed safe for PO diet suggest healthy heart. Status: Moderate nutrition risk Respectfully, Rosenda Aponte RD, LD [facility] cc: client file
--- NOTE | ~2016-04-23 | CT57 ---
[facility] A Service of [facility] & [facility] RADIOLOGY TEXT RESULTS PATIENT: SABINA HEAD LOCATION: [place] [id number] : [birth year] UNIT #: [id number] AGE: [address]: Dacia Acuña MD SEX: M ORDER DR: [id number] [facility] [address] [facility]. [place], [place] [address] [id number] I MR#: [id number] Acc #: [id number] NAME: SABINA HEAD. : 1955 SEX: M STUDY DATE/TIME: 04/24/2016 15:57 UNIT: [facility] ROOM: [facility] STUDY DESCRIPTION: CT Chest Wo Cont Attending Physician: Dacia Acuña M.D. Ordering Physician: Dave Rodarte M.D. Primary Care Physician: Dayami Suarez A.P.R.N. MEDICAL IMAGING REPORT This report is preliminary unless electronic signature is present EXAM CT chest, 04/24/2016 HISTORY Short of air, cough since 04/22/2016, pneumonia, on [address] chest performed without administration of intravenous contrast. This CT exam was performed with one or more of the following radiation dose reduction techniques: Automatic exposure control, adjustment of mA and/or kV according to patient size, and iterative reconstruction. No prior CTs of chest for comparison. Chest radiograph from earlier same date available for comparison. FINDINGS Visualized thyroid unremarkable. No axillary, mediastinal or hilar adenopathy. Partially calcified paratracheal node indicating prior exposure to granulomatous disease. There are small mediastinal and hilar nodes. The heart is normal in size. Coronary arterial calcifications. No pleural effusion. Liver shows focal area of subtle hypodensity adjacent to the falciform ligament in segment IV, most consistent with focal fatty infiltration. No clearly suspicious hepatic abnormality. The gallbladder, spleen, pancreas, adrenal glands unremarkable. 1 cm exophytic cyst medial aspect mid-left kidney. 2.6 cm exophytic cyst mid-right kidney. No upper abdominal adenopathy. Esophagus, stomach, small bowel, colon notable for uncomplicated transverse colon diverticulosis. Pulmonary parenchyma shows underlying centrilobular emphysema. Calcified granuloma right upper lobe. Linear scarring or atelectasis inferior lingular segment. No indication of pneumonia or edema. No suspicious nodule. Some retained secretions in the trachea. The unopacified [facility]. [facility] A Service of [facility] RADIOLOGY TEXT RESULTS PATIENT: SABINA HEAD LOCATION: [address] : [birth year] UNIT #: [id number] AGE: [address]: Dacia Acuña MD SEX: M ORDER DR: vascular structures show no indication of aneurysm. Scattered atherosclerotic arterial calcifications. Bony structures show no acute abnormality. Degenerative change in the spine. IMPRESSION 1. No suspicious acute abnormality is seen in the lungs. There is underlying centrilobular emphysema. There is minimal linear scarring or atelectasis in the inferior lingular segment. No indication of pneumonia or edema. No suspicious pulmonary nodule. No pleural effusion or pneumothorax. 2. There are some retained secretions in the trachea. 3. Healed granulomatous disease. 4. Extensive atherosclerotic calcification in coronary and systemic arteries. 5. Bilateral renal cysts. 6. Uncomplicated transverse colon diverticulosis. Dictated by... George Stevens M.D. THIS IS AN ELECTRONICALLY VERIFIED REPORT George Stevens M.D. at 04/25/2016 10:16 PM EDGAR/jose TD: 04/24/2016 22:06 JOB #: [id number] MEDICAL IMAGING REPORT COPY
--- NOTE | ~2016-04-23 | CR72 ---
[facility] A Service of [facility] RADIOLOGY TEXT RESULTS PATIENT: SABINA HEAD LOCATION: [place] [address] : [birth year] UNIT #: [id number] AGE: [address]: Maurice Arreola MD SEX: M ORDER DR: [id number] [facility] [address] [facility]. [place], [place] [address] [id number] I MR#: [id number] Acc #: [id number] NAME: SABINA HEAD : 1955 SEX: M STUDY DATE/TIME: 04/23/2016 11:31 UNIT: [facility] ROOM: [id number] STUDY DESCRIPTION: CR Chest Single View Portable Attending Physician: Maurice Arreola M.D. Ordering Physician: Kandy Richardson M.D. Primary Care Physician: Dayami Suarez A.P.R.N. MEDICAL IMAGING REPORT This report is preliminary unless electronic signature is present EXAM Portable chest, 04/23/2016. HISTORY Shortness of air beginning today. COMPARISON Chest 04/05/2014. FINDINGS 2 frontal views of the chest demonstrate clear lungs. No pleural effusion or pneumothorax. Heart size and mediastinum are normal. Pulmonary vasculature normal. IMPRESSION No acute cardiopulmonary findings. Dictated by... Kayden Amos M.D. THIS IS AN ELECTRONICALLY VERIFIED REPORT Kayden Amos M.D. at 04/24/2016 5:57 AM MARGUERITE/lawrence TD: 04/23/2016 14:20 JOB #: [id number] MEDICAL IMAGING REPORT COPY
--- NOTE | ~2016-04-23 | CR72 ---
[facility] A Service of [facility] & [facility] RADIOLOGY TEXT RESULTS PATIENT: SABINA HEAD LOCATION: [place] [id number] : [birth year] UNIT #: [id number] AGE: [address]: Dacia Acuña MD SEX: M ORDER DR: [id number] [facility] [address] [facility]. [place], [place] [address] [id number] I MR#: [id number] Acc #: [id number] NAME: SABINA HEAD : 1955 SEX: M STUDY DATE/TIME: 04/26/2016 11:13 UNIT: [facility] ROOM: [facility] STUDY DESCRIPTION: CR Chest Single View Portable Attending Physician: Dacia Acuña M.D. Ordering Physician: Dave Rodarte M.D. Primary Care Physician: Dayami Suarez A.P.R.N. MEDICAL IMAGING REPORT This report is preliminary unless electronic signature is present EXAM Portable chest, 04/26/2016 at 11:13 INDICATION 61-year-old male with history of recent Dobbhoff tube placement in the right lung. This examination is performed to evaluate for possible pneumothorax after the Dobbhoff tube was removed. COMPARISON Earlier today. FINDINGS Interval removal of Dobbhoff tube. There is no evidence of pneumothorax. The remainder of the study is unchanged. IMPRESSION Removal of Dobbhoff tube. There is no evidence of pneumothorax. Dictated by... Tim Whitfield M.D. THIS IS AN ELECTRONICALLY VERIFIED REPORT Tim Whitfield M.D. at 04/27/2016 4:04 PM ROME/sridhar TD: 04/26/2016 12:50 JOB #: [id number] MEDICAL IMAGING REPORT COPY
--- NOTE | ~2016-04-23 | CR72 ---
[facility] A Service of [facility] RADIOLOGY TEXT RESULTS PATIENT: SABINA HEAD LOCATION: [place] [id number] : [birth year] UNIT #: [id number] AGE: [address]: Dacia Acuña MD SEX: M ORDER DR: [id number] [facility] [address] [facility]. [place], [place] [address] [id number] I MR#: [id number] Acc #: [id number] NAME: SABINA HEAD : 1955 SEX: M STUDY DATE/TIME: 04/26/2016 8:54 UNIT: [facility] ROOM: [facility] STUDY DESCRIPTION: CR Chest Single View Portable Attending Physician: Dacia Acuña M.D. Ordering Physician: Dave Rodarte M.D. Primary Care Physician: Dayami Suarez A.P.R.N. MEDICAL IMAGING REPORT This report is preliminary unless electronic signature is present EXAM Single portable AP view of the chest performed on 04/26/2016 at 0854 hours HISTORY 61-year-old male with respiratory failure and Dobbhoff tube placement. Patient has history of COPD. FINDINGS In comparison to the previous exam of the same date at 0555 hours, there has been interval placement of a Dobbhoff feeding tube. The distal tip is in the right mainstem bronchus. Repositioning prior to use is recommended with confirmatory radiograph. The right-sided PICC line remains stable with its tip in the SVC and the heart is not enlarged. No new pulmonary infiltrate or opacity is present. IMPRESSION Dobbhoff tube placement since 04/26/2016 at 0555 hours with the distal tip in the right mainstem bronchus. Repositioning with a repeat radiograph recommended. STAT * RESULT Dictated by... Crow Lowery M.D. THIS IS AN ELECTRONICALLY VERIFIED REPORT Crow Lowery M.D. at 04/26/2016 4:31 PM JORGE/deep [facility]. [facility] A Service of [facility] & [facility] RADIOLOGY TEXT RESULTS PATIENT: SABINA HEAD LOCATION: [facility] : [birth year] UNIT #: [id number] AGE: [address]: Dacia Acuña MD SEX: M ORDER DR: TD: 04/26/2016 09:16 JOB #: [id number] MEDICAL IMAGING REPORT COPY
--- NOTE | ~2016-04-23 | CR72 ---
[facility] A Service of [facility] & [facility] RADIOLOGY TEXT RESULTS PATIENT: SABINA HEAD LOCATION: [place] [id number] : [birth year] UNIT #: [id number] AGE: [address]: Dacia Acuña MD SEX: M ORDER DR: [id number] [facility] [address] [facility]. [place], [place] [address] [id number] I MR#: [id number] Acc #: [id number] NAME: SABINA HEAD. : 1955 SEX: M STUDY DATE/TIME: 04/24/2016 23:26 UNIT: [facility] ROOM: [facility] STUDY DESCRIPTION: CR Chest Single View Portable Attending Physician: Dacia Acuña M.D. Ordering Physician: Dacia Acuña M.D. Primary Care Physician: Dayami Suarez A.P.R.N. MEDICAL IMAGING REPORT This report is preliminary unless electronic signature is present EXAM Portable chest 04/24/2016 HISTORY Post invasive procedure, PICC line placement today, shortness of breath for 2 days. FINDINGS The heart is normal in size. Right arm approach PICC line has been inserted with the tip in the superior vena cava. The lungs are clear. There are no pleural effusions. Endotracheal tube is unchanged. IMPRESSION Right arm approach PICC line has been inserted with the tip in the superior vena cava. No other change compared with 04/24/2016 at 21:45. Dictated by... Óscar Maher M.D. THIS IS AN ELECTRONICALLY VERIFIED REPORT Óscar Maher M.D. at 04/26/2016 3:22 AM BELINDA/deep TD: 04/25/2016 06:55 JOB #: [id number] MEDICAL IMAGING REPORT COPY
--- NOTE | ~2016-04-23 | EKG ---
PATIENT: SABINA HEAD UNIT #: [id number] Ventricular Rate: 83 BPM Atrial Rate: 83 BPM P-R Interval: 132 ms QRS Duration: 88 ms Q-T Interval: 356 ms QTC Calculation(Bezet): 418 ms P [place]: 58 degrees Calculated R [place]: 7 degrees Calculated T [place]: 25 degrees Diagnosis Line: Sinus rhythm with Premature supraventricular Diagnosis Line: complexes Diagnosis Line: Otherwise normal ECG Diagnosis Line: When compared with ECG of 15-MAY-2016 19:54, Diagnosis Line: (unconfirmed) Diagnosis Line: Premature supraventricular complexes are now Diagnosis Line: Present Diagnosis Line: Confirmed by REGIS BERGER MD ([id number]) on 05/18/2016 Diagnosis Line: 7:16:35 AM INTERPRETING MD: CELINE SAMUEL
--- NOTE | ~2016-04-23 | FU ---
[facility] Nutrition Therapy DATE: 04/28/16 Patient: SABINA HEAD Physician: KAUSHAL Address: [address] [place] [address] Room/Bed: [address], Zip: [place] [address] Admit Date: 04/23/16 Date of : 57 Height: 5 8 Weight: 211 96 NUTRITION MONITORING/FOLLOW-UP: Reason: PT SEEN FOR FOLLOW-UP/ENTERAL NUTRITION SUPPORT DX: COPD EXAC, ACUTE RESP FAILURE Anthropometrics: 5'8", WT: 211# (96 KG), BMI: 32.1 -WEIGHTS HAVE BEEN STABLE SINCE ADMIT Labs: GLU: 150, BUN: 37, ALB: 3.2 Meds: PROPOFOL, PROTONIX, D5%, VERSED, LIPITOR, SOLU-MEDROL I&O's: 6611/1260 Skin: PEDAL TRACE EDEMA; BILATERAL HANDS 1+ EDEMA Estimated Nutrition Needs: 5070-8374 KCAL 98-117 G PRO Assessment: CHART REVIEWED AND EVENTS NOTED. PT SEEN FOR ENTERAL NUTRITION SUPPORT FOLLOW-UP. PT CONTINUES TO BE INTUBATED AND SEDATED W/PROPOFOL (RATE OF 19.6 ML/HR PROVIDING ~520 KCAL FROM LIPIDS). PER RN AND CHART, PT TOLERATING ENTERAL NUTRITION SUPPORT AT THIS TIME, NOTING 0-200 ML/RESIDUALS. NO FAMILY IN ROOM AT THIS TIME. RD TO CONTINUE TO FOLLOW. SEE RECOMMENDATIONS BELOW. Dx: INADEQUATE ORAL INTAKE R/T DX, CURRENT CONDITION AEB PT INTUBATED AND SEDATED, PT RECEIVING ALTERNATIVE NUTRITION SUPPORT. Intervention: 1. ENTERAL NUTRITION SUPPORT Monitoring, Evaluation and Goals: GOALS NOT MET 1. ENTERAL NUTRITION; TOLERATE EN AT GOAL W/NO SIGNS OF INTOLERANCE 2. LABS; WNL 3. GI; PROMOTE REGULAR GI FUNCTION MONITOR: -WEIGHTS -TF RATE/RESIUALS -SEDATION RATE -LABS -EXTUBATION? [facility] Nutrition Therapy DATE: 04/28/16 Patient: SABINA HEAD Physician: KAUSHAL Address: [address] [place] [address] Room/Bed: [address], Zip: [place] [address] Admit Date: 04/23/16 Date of : 57 Height: 5 8 Weight: 211 96 Recommendations: 1. CONTINUE TO OPTIMIZE BLOOD SUGAR CONTROL REGIMEN 2. RECOMMEND TO DECREASE CURRENT ENTERAL NUTRITION SUPPORT OF JEVITY 1.5 TO 40 ML/HR + SEDATION + SUGAR-FREE PROSTAT TID -TOTAL PROVIDES 2260 KCAL, 106 G PRO, 730 ML FREE H20 CONTINUE FREE H20 FLUSHES PER MD 3. ONCE PROPOFOL D/C'D, RECOMMEND ALTERNATIVE NUTRITON SUPPORT OF JEVITY 1.5 @ 60 ML/HR +SUGAR-FREE PROSTAT ONCE DAILY -PROVIDES 2260 KCAL, 107 G PRO, 1094 ML FREE H20 ADD FREE H20 FLUSHES PER MD 4. ONCE PT EXTUBATED, ADVANCE DIET PER MEDIA SERVICES SPECIALIST + HH DIET RD WILL F/U PER PROTOCOL PT IS MOD/SEVERELY COMPROMISED Respectfully, BRANDO GASCA MS, RD, LD Food and Nutritional Services [facility] cc: client file
--- NOTE | ~2016-04-23 | CR72 ---
[facility] A Service of [facility] & [facility] RADIOLOGY TEXT RESULTS PATIENT: SABINA HEAD LOCATION: [place] [id number] : 57 UNIT #: [id number] AGE: [address]: Dacia Acuña MD SEX: M ORDER DR: [id number] [facility] [address]. [place], [place] [address] [id number] I MR#: [id number] Acc #: [id number] NAME: SABINA HEAD. : 1955 SEX: M STUDY DATE/TIME: 05/01/2016 022 UNIT: [facility] ROOM: [facility] STUDY DESCRIPTION: CR Chest Single View Portable Attending Physician: Dacia Acuña M.D. Ordering Physician: Dave Rodarte M.D. Primary Care Physician: Dayami Suarez A.P.R.N. MEDICAL IMAGING REPORT This report is preliminary unless electronic signature is present EXAM Portable chest, 05/01 at 0229. INDICATION COPD. Respiratory failure. Ventilator patient. FINDINGS AP portable chest is compared with 04/30/2016. ET tube and right arm PICC are in good position. The lungs are emphysematous but clear. No pneumothorax. Feeding tube in the stomach. Heart size stable. Dictated by... Mio Jin Jr., M.D. THIS IS AN ELECTRONICALLY VERIFIED REPORT Mio Jin Jr., M.D. at 05/01/2016 8:38 PM SHERRI/lawrence TD: 05/01/2016 10:36 JOB #: [id number] MEDICAL IMAGING REPORT COPY
--- NOTE | ~2016-04-23 | CR7 ---
[facility] A Service of [facility] & [facility] RADIOLOGY TEXT RESULTS PATIENT: SABINA HEAD LOCATION: [address] : [birth year] UNIT #: [id number] AGE: [address]: Dacia Acuña MD SEX: M ORDER DR: [id number] [facility] [address] [place], [place] [address] [id number] I MR#: [id number] Acc #: [id number] NAME: SABINA HEAD. : 1955 SEX: M STUDY DATE/TIME: 04/27/2016 15:26 UNIT: [facility] ROOM: [facility] STUDY DESCRIPTION: CR Abdomen Single AP View Attending Physician: Dacia Acuña M.D. Ordering Physician: Butch Dent M.D. Primary Care Physician: Dayami Suarez A.P.R.N. MEDICAL IMAGING REPORT This report is preliminary unless electronic signature is present EXAM KUB 04/27 INDICATIONS Abdominal distension today. FINDINGS Supine views of the abdomen are compared with 04/26/2016. Tip of flexible feeding tube remains in the gastric fundus. Bowel gas pattern is normal. No obstruction is seen. Patient has a right hip arthroplasty. Dictated by... Mio Jin Jr., M.D. THIS IS AN ELECTRONICALLY VERIFIED REPORT Mio Jin Jr., M.D. at 04/28/2016 2:52 PM RLK/elif TD: 04/27/2016 18:40 JOB #: [id number] MEDICAL IMAGING REPORT COPY
--- NOTE | ~2016-04-23 | CR72 ---
[facility] A Service of [facility] & [facility] RADIOLOGY TEXT RESULTS PATIENT: SABINA HEAD LOCATION: [place] [id number] : 57 UNIT #: [id number] AGE: [address]: Dacia Acuña MD SEX: M ORDER DR: [id number] [facility] [address]. [place], [place] [address] [id number] I MR#: [id number] Acc #: [id number] NAME: SABINA HEAD. : 1955 SEX: M STUDY DATE/TIME: 04/30/2016 5:41 UNIT: [facility] ROOM: [facility] STUDY DESCRIPTION: CR Chest Single View Portable Attending Physician: Dacia Acuña M.D. Ordering Physician: Dave Rodarte M.D. Primary Care Physician: Dayami Suarez A.P.R.N. MEDICAL IMAGING REPORT This report is preliminary unless electronic signature is present EXAM Portable chest HISTORY Intubated, COPD exacerbation, shortness of air. COMPARISON 04/29/2016. FINDINGS Tubes and lines remain in satisfactory position unchanged. Minimal left basilar atelectasis. No dense consolidation. No sizeable effusions. No pneumothorax. Dictated by... Carolynn Whitfield M.D. THIS IS AN ELECTRONICALLY VERIFIED REPORT Carolynn Whitfield M.D. at 04/30/2016 3:04 PM FRANSISCO/deep TD: 04/30/2016 13:26 JOB #: [id number] MEDICAL IMAGING REPORT COPY
--- NOTE | ~2016-04-23 | FU ---
[facility] Nutrition Therapy DATE: 05/10/16 Patient: SABINA HEAD Physician: KAUSHAL Address: [address] [place] [address] Room/Bed: [address], Zip: [place] [address] Admit Date: 04/23/16 Date of : 57 Height: 5 8 Weight: 152 69 NUTRITION MONITORING/FOLLOW-UP: Reason: Enteral nutrition follow-up Anthropometrics: Current wt: 69 kg- accurate???, initial weight: 98.2 kg Labs: Glucose 133, POC 135 Meds: PPI, Novolog (low SSI), Colace, Solu-Medrol I&O's: 3002/2715, last BM 05/09 (constipation noted) Skin: Oral pink/tender, redness coccyx, rash shelby/groin area Edema: ERIN feet 2+ Estimated Nutrition Needs: 5187-0437 kcals per day 98-117 g protein per day Fluids consistent with kcal needs or per MD Assessment: Chart reviewed, events noted. Patient is tolerating Bipap, is oriented to self but not place, drowsy but follows simple commands. Good UOP. Patient remains on enteral feeds of Jevity 1.5 running at goal rate of 60 ml/hr, providing 89% goal EN volume x 48 hours per pump history (nutrition goal met). Patient is also receiving 30 ml daily Prostat per tube with 300 ml free water flushes q 6 hours per MD. Nutrition dx remains. Jackson precert started yesterday, see RD recs below. 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 EN to provide > 80% goal volume x 24 hours. 2. Promote regular BM's. 3. Prevent loss of lean body mass. Monitor: Per protocol, criteria to determine if above goals met Recommendations: 1. Continue current EN regimen: Jevity 1.5 @ goal of 60 ml/hr + 30 ml Prostat daily which [facility] Nutrition Therapy DATE: 05/10/16 Patient: SABINA HEAD Physician: KAUSHAL Address: [facility] Room/Bed: [address], Zip: [place] [address] Admit Date: 04/23/16 Date of : 57 Height: 5 8 Weight: 152 69 provides 2260 kcals, 107 g protein and 1094 ml water. Agree with MD's free water flushes of 300 ml q 6 hours. 2. BILLBOARD POSTER as appropriate. Advance oral diet per their recommendations only once able. 3. Please obtain an accurate weight on the patient. Status: Moderate nutrition risk Respectfully, Rosenda Aponte RD, LD Food and Nutritional Services [facility] cc: client file
[2016-04-23 11:39] LABS: BASOPHIL% 0.2 % (0-2.5); EOSINOPHIL% 0.1 % (0.0-7.0); HEMATOCRIT 40.2 % (38.0-50.0); HEMOGLOBIN 13.3 gm/dL (13.0-16.0); LYMPHOCYTE# 0.2 X10e3 (1.0-3.5); LYMPHOCYTE% 1.7 % (17.0-45.0); MEAN CELL VOLUME 92.4 FL (83-96); MEAN CORPUSCULAR HEMOGLOBIN 30.5 PG (28-34); MEAN PLATELET VOLUME 8.4 FL (6.5-11.5); MONOCYTE# 0.8 X10e3 (0-1.0); MONOCYTE% 6.2 % (3.0-12.0); NEUTROPHIL# 11.2 X10e3 (1.5-7.1); NEUTROPHIL% 91.8 % (40-75); PLATELET COUNT 169 X10e3 (140-420); RED BLOOD COUNT 4.35 X10e (3.90-5.60); RED CELL DISTRIBUTION WIDTH 13.9 % (11.0-15.5); WHITE BLOOD COUNT 12.2 X10e3 (4.0-10.5)
[2016-04-23 11:40] LABS: POC - CKMB 4.2 ng/mL (0.0-7.9); POC - TROPONIN <0.05 ng/mL (<=0.05)
[2016-04-23 11:43] LABS: DIFF IND NO
[~2016-04-23 11:53] MED LIST: ALBUTEROL17 GM INH; BENICAR PO; CRESTOR10 MG PO; GLUCOSAMINE CHO1 CA1 PO; MOTRIN600 MG PO; OMEGA 3 FISH OI1 CAP PO; PEN-VEE K PO; PERCOCET5/325 PO; PROAIR HFA8.5 GM; [UNRECOGNIZED DRUG - OTHER]; [UNRECOGNIZED DRUG - REMARK]
[2016-04-23 12:04] LABS: ALBUMIN SERUM 4.4 g/dL (3.5-5.0); ALKALINE PHOSPHATASE 56 U/L (32-92); ALT (SGPT) 28 U/L (10-40); AST (SGOT) 29 U/L (10-42); BILIRUBIN, DIRECT 0.1 mg/dL (0.0-0.2); BILIRUBIN,INDIRECT 0.7 mg/dL (0.0-0.9); BILIRUBIN,TOTAL 0.8 mg/dL (0.2-2.0); BLOOD UREA NITROGEN 10 mg/dL (9-23); BUN/CREATININE RATIO 14.28; CALCIUM SERUM 8.5 mg/dL (8.4-10.2); CARBON DIOXIDE 26 mmol/L (22-31); CHLORIDE 95 mmol/L (100-111); CREATININE SERUM 0.7 mg/dL (0.6-1.4); GLOM FILT RATE Estimated ABOVE60 mL/min (>60); GLUCOSE FASTING 118 mg/dL (70-110); POTASSIUM 4.1 mmol/L (3.5-5.1); SODIUM 128 mmol/L (135-145)
[2016-04-23 13:00] LABS: INR 1.1; PROTHROMBIN TIME (PATIENT) 11.3 SECONDS (9.6-11.5)
[2016-04-23 13:21] LABS: POC - CKMB 5.2 ng/mL (0.0-7.9); POC - TROPONIN <0.05 ng/mL (<=0.05)
[2016-04-23 14:28] LABS: ARTERIAL BLD GAS O2 SATURATION 86.2 % (90.0-100.0); ARTERIAL BLOOD GAS CARBOXY HB 1.5 %sat (0.0-9.0); ARTERIAL BLOOD GAS HCO3 30.1 mmol/L
[2016-04-23 14:29] LABS: ARTERIAL BLOOD GAS ALLEN TEST NORMAL; ARTERIAL BLOOD GAS ART SITE RIGHT RADIAL; ARTERIAL BLOOD GAS DELIVERY NASAL CANNULA; ARTERIAL BLOOD GAS PCO2 61.3 mmHg (35.0-45.0); ARTERIAL BLOOD GAS PO2 57.9 mmHg (80.0-100); ARTERIAL DRAW? YES
[2016-04-23] MEDS ORDERED: ZOLOFT50 MG PO (14:29)
[2016-04-23] MEDS ORDERED: MELOXICAM15 MG PO (14:30)
[2016-04-23] MEDS ORDERED: CRESTOR10 MG PO (14:30)
[2016-04-23] MEDS ORDERED: BENICAR20 MG PO (14:30)
[2016-04-23 20:49] LABS: INFLUENZA A NEG (NEG); INFLUENZA B NEG (NEG)
[2016-04-24 06:59] LABS: HEMATOCRIT 42.2 % (38.0-50.0); HEMOGLOBIN 13.8 gm/dL (13.0-16.0); MEAN CELL VOLUME 93.7 FL (83-96); MEAN CORPUSCULAR HEMOGLOBIN 30.6 PG (28-34); MEAN CORPUSCULAR HGB CONC 32.7 g/dL (30-36); RED BLOOD COUNT 4.5 X10e (3.90-5.60); WHITE BLOOD COUNT 12.7 X10e3 (4.0-10.5)
[2016-04-24 07:32] LABS: BLOOD UREA NITROGEN 14 mg/dL (9-23); CALCIUM SERUM 8.9 mg/dL (8.4-10.2); CARBON DIOXIDE 32 mmol/L (22-31); CHLORIDE 90 mmol/L (100-111); CREATININE SERUM 0.7 mg/dL (0.6-1.4); GLOM FILT RATE Estimated ABOVE60 mL/min (>60); GLUCOSE FASTING 133 mg/dL (70-110); SODIUM 128 mmol/L (135-145)
[2016-04-24 07:39] LABS: POTASSIUM 5.5 mmol/L (3.5-5.1)
[2016-04-24 16:36] LABS: ARTERIAL BLD GAS O2 SATURATION 97.2 % (90.0-100.0); ARTERIAL BLOOD GAS CARBOXY HB 0.3 %sat (0.0-9.0); ARTERIAL BLOOD GAS HCO3 35.7 mmol/L; ARTERIAL BLOOD GAS MET HB 0.7 %sat (0.0-2.0); ARTERIAL BLOOD GAS pH 7.204 (7.350-7.450)
[2016-04-24 16:39] LABS: ARTERIAL BLOOD GAS ALLEN TEST Y; ARTERIAL BLOOD GAS ART SITE LEFT RADIAL; ARTERIAL BLOOD GAS DELIVERY VENTI; ARTERIAL BLOOD GAS PCO2 90.6 mmHg (35.0-45.0); ARTERIAL DRAW? YES
[2016-04-24 18:36] LABS: ARTERIAL BLD GAS O2 SATURATION 98.4 % (90.0-100.0); ARTERIAL BLOOD GAS CARBOXY HB 0.2 %sat (0.0-9.0); ARTERIAL BLOOD GAS HCO3 37.1 mmol/L; ARTERIAL BLOOD GAS MET HB 0.9 %sat (0.0-2.0)
[2016-04-24 18:40] LABS: ARTERIAL BLOOD GAS ALLEN TEST NORMAL; ARTERIAL BLOOD GAS ART SITE LEFT RADIAL; ARTERIAL BLOOD GAS DELIVERY BIPAP 16/4 R14; ARTERIAL BLOOD GAS pH 7.171 (7.350-7.450); ARTERIAL DRAW? YES
[2016-04-24 20:39] LABS: ARTERIAL BLD GAS O2 SATURATION 99.1 % (90.0-100.0); ARTERIAL BLOOD GAS CARBOXY HB 0.1 %sat (0.0-9.0); ARTERIAL BLOOD GAS HCO3 36.1 mmol/L; ARTERIAL BLOOD GAS MET HB 0.7 %sat (0.0-2.0)
[2016-04-24 20:40] LABS: ARTERIAL BLOOD GAS pH 7.165 (7.350-7.450)
[2016-04-24 20:41] LABS: ARTERIAL BLOOD GAS ALLEN TEST NORMAL; ARTERIAL BLOOD GAS ART SITE RIGHT RADIAL; ARTERIAL BLOOD GAS DELIVERY NON REBREATHER MASK; ARTERIAL DRAW? YES
[2016-04-24 22:23] LABS: ARTERIAL BLD GAS O2 SATURATION 98.4 % (90.0-100.0); ARTERIAL BLOOD GAS CARBOXY HB 0.1 %sat (0.0-9.0); ARTERIAL BLOOD GAS HCO3 32.4 mmol/L; ARTERIAL BLOOD GAS MET HB 0.8 %sat (0.0-2.0)
[2016-04-24 22:24] LABS: ARTERIAL BLOOD GAS ALLEN TEST NORMAL; ARTERIAL BLOOD GAS ART SITE RIGHT RADIAL; ARTERIAL BLOOD GAS DELIVERY VENT; ARTERIAL BLOOD GAS PCO2 86.3 mmHg (35.0-45.0); ARTERIAL BLOOD GAS VENT MODE A/C; ARTERIAL BLOOD GAS pH 7.183 (7.350-7.450); ARTERIAL DRAW? YES
[2016-04-24 22:53] LABS: BASOPHIL% 0.2 % (0-2.5); HEMATOCRIT 43.7 % (38.0-50.0); HEMOGLOBIN 13.9 gm/dL (13.0-16.0); LYMPHOCYTE# 0.5 X10e3 (1.0-3.5); LYMPHOCYTE% 3.4 % (17.0-45.0); MEAN CELL VOLUME 94.9 FL (83-96); MEAN CORPUSCULAR HEMOGLOBIN 30.2 PG (28-34); MEAN CORPUSCULAR HGB CONC 31.8 g/dL (30-36); MEAN PLATELET VOLUME 8.4 FL (6.5-11.5); MONOCYTE# 0.6 X10e3 (0-1.0); MONOCYTE% 3.8 % (3.0-12.0); NEUTROPHIL# 13.6 X10e3 (1.5-7.1); NEUTROPHIL% 92.6 % (40-75); PLATELET COUNT 192 X10e3 (140-420); RED BLOOD COUNT 4.61 X10e (3.90-5.60); RED CELL DISTRIBUTION WIDTH 14.4 % (11.0-15.5); WHITE BLOOD COUNT 14.7 X10e3 (4.0-10.5)
[2016-04-24 22:54] LABS: DIFF IND NO
[2016-04-24 23:47] LABS: BLOOD UREA NITROGEN 20 mg/dL (9-23); BUN/CREATININE RATIO 18.18; CARBON DIOXIDE 32 mmol/L (22-31); CHLORIDE 91 mmol/L (100-111); CK TOTAL 315 IU/L (36-174); CREATININE SERUM 1.1 mg/dL (0.6-1.4); GLOM FILT RATE Estimated ABOVE60 mL/min (>60); GLUCOSE FASTING 171 mg/dL (70-110); POTASSIUM 4.7 mmol/L (3.5-5.1); SODIUM 131 mmol/L (135-145)
[2016-04-25 00:05] LABS: %MB 4.6 % (0.0-4.0); MB 14.6 ng/ml
[2016-04-25 00:35] LABS: ARTERIAL BLD GAS O2 SATURATION 98.1 % (90.0-100.0); ARTERIAL BLOOD GAS ALLEN TEST NORMAL; ARTERIAL BLOOD GAS CARBOXY HB 0.3 %sat (0.0-9.0); ARTERIAL BLOOD GAS HCO3 33.2 mmol/L; ARTERIAL BLOOD GAS MET HB 0.7 %sat (0.0-2.0); ARTERIAL BLOOD GAS PCO2 63.2 mmHg (35.0-45.0); ARTERIAL BLOOD GAS pH 7.329 (7.350-7.450); ARTERIAL DRAW? YES
[2016-04-25 00:36] LABS: ARTERIAL BLOOD GAS ART SITE RIGHT RADIAL; ARTERIAL BLOOD GAS DELIVERY VENT; ARTERIAL BLOOD GAS VENT MODE A/C
[2016-04-25 03:55] LABS: ARTERIAL BLD GAS O2 SATURATION 97.8 % (90.0-100.0); ARTERIAL BLOOD GAS CARBOXY HB 0.5 %sat (0.0-9.0); ARTERIAL BLOOD GAS HCO3 33.6 mmol/L; ARTERIAL BLOOD GAS MET HB 1.2 %sat (0.0-2.0); ARTERIAL BLOOD GAS pH 7.377 (7.350-7.450)
[2016-04-25 04:23] LABS: ARTERIAL BLOOD GAS ART SITE RIGHT BRACHIAL; ARTERIAL BLOOD GAS DELIVERY VENT; ARTERIAL BLOOD GAS PCO2 57.2 mmHg (35.0-45.0); ARTERIAL BLOOD GAS VENT MODE A/C; ARTERIAL DRAW? YES
[2016-04-25 05:47] LABS: HEMATOCRIT 39.7 % (38.0-50.0); HEMOGLOBIN 12.7 gm/dL (13.0-16.0); MEAN CELL VOLUME 93.8 FL (83-96); MEAN CORPUSCULAR HEMOGLOBIN 29.9 PG (28-34); MEAN CORPUSCULAR HGB CONC 31.9 g/dL (30-36); MEAN PLATELET VOLUME 8.4 FL (6.5-11.5); RED BLOOD COUNT 4.23 X10e (3.90-5.60); WHITE BLOOD COUNT 12.6 X10e3 (4.0-10.5)
[2016-04-25 06:38] LABS: CALCIUM SERUM 9.2 mg/dL (8.4-10.2); CREATININE SERUM 1.5 mg/dL (0.6-1.4); GLOM FILT RATE Estimated 50.7 mL/min (>60)
[2016-04-26 04:57] LABS: ARTERIAL BLD GAS O2 SATURATION 97.8 % (90.0-100.0); ARTERIAL BLOOD GAS CARBOXY HB 0.1 %sat (0.0-9.0); ARTERIAL BLOOD GAS HCO3 30.6 mmol/L; ARTERIAL BLOOD GAS MET HB 0.8 %sat (0.0-2.0); ARTERIAL BLOOD GAS PCO2 48.9 mmHg (35.0-45.0); ARTERIAL BLOOD GAS pH 7.405 (7.350-7.450)
[2016-04-26 05:03] LABS: ARTERIAL BLOOD GAS ALLEN TEST NORMAL; ARTERIAL DRAW? YES
[2016-04-26 05:04] LABS: ARTERIAL BLOOD GAS ART SITE LEFT BRACHIAL; ARTERIAL BLOOD GAS VENT MODE AC
[2016-04-26 06:06] LABS: BASOPHIL% 0.2 % (0-2.5); HEMATOCRIT 37.5 % (38.0-50.0); HEMOGLOBIN 12.2 gm/dL (13.0-16.0); LYMPHOCYTE# 0.3 X10e3 (1.0-3.5); LYMPHOCYTE% 2.6 % (17.0-45.0); MEAN CELL VOLUME 92.4 FL (83-96); MEAN CORPUSCULAR HGB CONC 32.5 g/dL (30-36); MEAN PLATELET VOLUME 8.5 FL (6.5-11.5); MONOCYTE# 0.5 X10e3 (0-1.0); MONOCYTE% 4.5 % (3.0-12.0); NEUTROPHIL# 11.3 X10e3 (1.5-7.1); NEUTROPHIL% 92.7 % (40-75); PLATELET COUNT 186 X10e3 (140-420); RED BLOOD COUNT 4.06 X10e (3.90-5.60); RED CELL DISTRIBUTION WIDTH 14.2 % (11.0-15.5); WHITE BLOOD COUNT 12.2 X10e3 (4.0-10.5)
[2016-04-26 06:18] LABS: ALBUMIN SERUM 3.3 g/dL (3.5-5.0); ALKALINE PHOSPHATASE 35 U/L (32-92); ALT (SGPT) 31 U/L (10-40); AST (SGOT) 32 U/L (10-42); BILIRUBIN,TOTAL 0.4 mg/dL (0.2-2.0); BLOOD UREA NITROGEN 25 mg/dL (9-23); CALCIUM SERUM 8.8 mg/dL (8.4-10.2); CARBON DIOXIDE 30 mmol/L (22-31); CHLORIDE 97 mmol/L (100-111); GLOM FILT RATE Estimated ABOVE60 mL/min (>60); GLUCOSE FASTING 136 mg/dL (70-110); POTASSIUM 4.3 mmol/L (3.5-5.1); PROTEIN TOTAL SERUM 5.5 g/dL (6.0-8.3); SODIUM 135 mmol/L (135-145)
[2016-04-26 06:33] LABS: DIFF IND NO
[2016-04-26 17:24] LABS: BUN/CREATININE RATIO 25.71; CALCIUM SERUM 8.3 mg/dL (8.4-10.2); CREATININE SERUM 1.4 mg/dL (0.6-1.4); GLOM FILT RATE Estimated 54.9 mL/min (>60)
[2016-04-27 04:45] LABS: ARTERIAL BLD GAS O2 SATURATION 98.4 % (90.0-100.0); ARTERIAL BLOOD GAS CARBOXY HB 0.1 %sat (0.0-9.0); ARTERIAL BLOOD GAS HCO3 26.6 mmol/L; ARTERIAL BLOOD GAS MET HB 0.7 %sat (0.0-2.0); ARTERIAL BLOOD GAS PCO2 44.1 mmHg (35.0-45.0)
[2016-04-27 04:59] LABS: ARTERIAL BLOOD GAS ALLEN TEST NORMAL; ARTERIAL BLOOD GAS ART SITE RIGHT RADIAL; ARTERIAL BLOOD GAS VENT MODE AC; ARTERIAL DRAW? YES
[2016-04-27 05:34] LABS: HEMATOCRIT 36.4 % (38.0-50.0); HEMOGLOBIN 11.8 gm/dL (13.0-16.0); MEAN CELL VOLUME 93.2 FL (83-96); MEAN CORPUSCULAR HEMOGLOBIN 30.1 PG (28-34); MEAN CORPUSCULAR HGB CONC 32.3 g/dL (30-36); MEAN PLATELET VOLUME 8.2 FL (6.5-11.5); RED BLOOD COUNT 3.91 X10e (3.90-5.60); RED CELL DISTRIBUTION WIDTH 14.5 % (11.0-15.5); WHITE BLOOD COUNT 11.2 X10e3 (4.0-10.5)
[2016-04-27 05:49] LABS: ALBUMIN SERUM 3.1 g/dL (3.5-5.0); ALKALINE PHOSPHATASE 33 U/L (32-92); ALT (SGPT) 31 U/L (10-40); AST (SGOT) 26 U/L (10-42); BILIRUBIN,TOTAL 0.2 mg/dL (0.2-2.0); BLOOD UREA NITROGEN 29 mg/dL (9-23); BUN/CREATININE RATIO 36.25; CALCIUM SERUM 8.5 mg/dL (8.4-10.2); CARBON DIOXIDE 28 mmol/L (22-31); CHLORIDE 105 mmol/L (100-111); CREATININE SERUM 0.8 mg/dL (0.6-1.4); GLOM FILT RATE Estimated ABOVE60 mL/min (>60); GLUCOSE FASTING 152 mg/dL (70-110); POTASSIUM 4.3 mmol/L (3.5-5.1); PROTEIN TOTAL SERUM 5.3 g/dL (6.0-8.3); SODIUM 136 mmol/L (135-145)
[2016-04-27 11:26] LABS: ARTERIAL BLD GAS O2 SATURATION 94.7 % (90.0-100.0); ARTERIAL BLOOD GAS CARBOXY HB 0.5 %sat (0.0-9.0); ARTERIAL BLOOD GAS HCO3 28.3 mmol/L; ARTERIAL BLOOD GAS MET HB 1.1 %sat (0.0-2.0); ARTERIAL BLOOD GAS PO2 97.2 mmHg (80.0-100); ARTERIAL BLOOD GAS pH 7.204 (7.350-7.450)
[2016-04-27 11:29] LABS: ARTERIAL BLOOD GAS ART SITE RIGHT RADIAL; ARTERIAL BLOOD GAS DELIVERY VENT; ARTERIAL BLOOD GAS PCO2 71.7 mmHg (35.0-45.0); ARTERIAL BLOOD GAS VENT MODE CPAP; ARTERIAL DRAW? YES
[2016-04-28 04:44] LABS: ARTERIAL BLD GAS O2 SATURATION 97.5 % (90.0-100.0); ARTERIAL BLOOD GAS CARBOXY HB 0.5 %sat (0.0-9.0); ARTERIAL BLOOD GAS HCO3 27.1 mmol/L; ARTERIAL BLOOD GAS MET HB 1.1 %sat (0.0-2.0); ARTERIAL BLOOD GAS pH 7.235 (7.350-7.450)
[2016-04-28 04:52] LABS: HEMOGLOBIN 11.6 gm/dL (13.0-16.0); LYMPHOCYTE# 0.4 X10e3 (1.0-3.5); LYMPHOCYTE% 5.5 % (17.0-45.0); MEAN CELL VOLUME 94.5 FL (83-96); MEAN CORPUSCULAR HEMOGLOBIN 30.4 PG (28-34); MEAN CORPUSCULAR HGB CONC 32.2 g/dL (30-36); MEAN PLATELET VOLUME 8.2 FL (6.5-11.5); MONOCYTE# 0.4 X10e3 (0-1.0); MONOCYTE% 5.6 % (3.0-12.0); NEUTROPHIL# 7.1 X10e3 (1.5-7.1); NEUTROPHIL% 88.9 % (40-75); PLATELET COUNT 171 X10e3 (140-420); RED BLOOD COUNT 3.81 X10e (3.90-5.60); RED CELL DISTRIBUTION WIDTH 14.8 % (11.0-15.5)
[2016-04-28 04:53] LABS: ARTERIAL BLOOD GAS ALLEN TEST NORMAL; ARTERIAL BLOOD GAS ART SITE RIGHT RADIAL; ARTERIAL DRAW? YES
[2016-04-28 04:54] LABS: DIFF IND NO
[2016-04-28 05:33] LABS: ALBUMIN SERUM 3.2 g/dL (3.5-5.0); ALKALINE PHOSPHATASE 28 U/L (32-92); ALT (SGPT) 34 U/L (10-40); AST (SGOT) 24 U/L (10-42); BILIRUBIN,TOTAL 0.2 mg/dL (0.2-2.0); BLOOD UREA NITROGEN 37 mg/dL (9-23); BUN/CREATININE RATIO 46.25; CALCIUM SERUM 8.6 mg/dL (8.4-10.2); CARBON DIOXIDE 27 mmol/L (22-31); CHLORIDE 110 mmol/L (100-111); CREATININE SERUM 0.8 mg/dL (0.6-1.4); GLOM FILT RATE Estimated ABOVE60 mL/min (>60); GLUCOSE FASTING 150 mg/dL (70-110); POTASSIUM 5.1 mmol/L (3.5-5.1); PROTEIN TOTAL SERUM 5.4 g/dL (6.0-8.3); SODIUM 141 mmol/L (135-145)
[2016-04-28 08:43] LABS: ARTERIAL BLD GAS O2 SATURATION 97.1 % (90.0-100.0); ARTERIAL BLOOD GAS CARBOXY HB 0.2 %sat (0.0-9.0); ARTERIAL BLOOD GAS HCO3 26.1 mmol/L; ARTERIAL BLOOD GAS MET HB 1.3 %sat (0.0-2.0); ARTERIAL BLOOD GAS pH 7.285 (7.350-7.450)
[2016-04-28 08:44] LABS: ARTERIAL BLOOD GAS ALLEN TEST NORMAL; ARTERIAL BLOOD GAS ART SITE RIGHT RADIAL; ARTERIAL BLOOD GAS DELIVERY VENT; ARTERIAL BLOOD GAS PCO2 54.9 mmHg (35.0-45.0); ARTERIAL BLOOD GAS VENT MODE AC; ARTERIAL DRAW? YES
[2016-04-28 11:33] LABS: ARTERIAL BLOOD GAS DELIVERY VENT; ARTERIAL BLOOD GAS VENT MODE A/C
[2016-04-29 04:14] LABS: ARTERIAL BLD GAS O2 SATURATION 98.2 % (90.0-100.0); ARTERIAL BLOOD GAS CARBOXY HB 0.3 %sat (0.0-9.0); ARTERIAL BLOOD GAS HCO3 32.5 mmol/L; ARTERIAL BLOOD GAS MET HB 1.1 %sat (0.0-2.0); ARTERIAL BLOOD GAS PCO2 47.7 mmHg (35.0-45.0); ARTERIAL BLOOD GAS pH 7.442 (7.350-7.450)
[2016-04-29 04:16] LABS: ARTERIAL BLOOD GAS ALLEN TEST NORMAL; ARTERIAL BLOOD GAS ART SITE LEFT RADIAL; ARTERIAL BLOOD GAS DELIVERY VENT; ARTERIAL BLOOD GAS VENT MODE AC; ARTERIAL DRAW? YES
[2016-04-29 04:57] LABS: BASOPHIL% 0.1 % (0-2.5); EOSINOPHIL% 0.1 % (0.0-7.0); HEMATOCRIT 36.6 % (38.0-50.0); LYMPHOCYTE# 0.8 X10e3 (1.0-3.5); MEAN CELL VOLUME 93.2 FL (83-96); MEAN CORPUSCULAR HEMOGLOBIN 30.6 PG (28-34); MEAN CORPUSCULAR HGB CONC 32.9 g/dL (30-36); MEAN PLATELET VOLUME 8.2 FL (6.5-11.5); MONOCYTE% 12.3 % (3.0-12.0); NEUTROPHIL# 6.7 X10e3 (1.5-7.1); NEUTROPHIL% 78.5 % (40-75); PLATELET COUNT 168 X10e3 (140-420); RED BLOOD COUNT 3.92 X10e (3.90-5.60); RED CELL DISTRIBUTION WIDTH 14.6 % (11.0-15.5); WHITE BLOOD COUNT 8.5 X10e3 (4.0-10.5)
[2016-04-29 04:58] LABS: DIFF IND NO
[2016-04-29 06:33] LABS: ALBUMIN SERUM 3.1 g/dL (3.5-5.0); ALKALINE PHOSPHATASE 30 U/L (32-92); ALT (SGPT) 49 U/L (10-40); AST (SGOT) 25 U/L (10-42); BILIRUBIN,TOTAL 0.3 mg/dL (0.2-2.0); BLOOD UREA NITROGEN 39 mg/dL (9-23); BUN/CREATININE RATIO 55.71; CALCIUM SERUM 8.9 mg/dL (8.4-10.2); CARBON DIOXIDE 29 mmol/L (22-31); CHLORIDE 105 mmol/L (100-111); CREATININE SERUM 0.7 mg/dL (0.6-1.4); GLOM FILT RATE Estimated ABOVE60 mL/min (>60); GLUCOSE FASTING 145 mg/dL (70-110); POTASSIUM 3.9 mmol/L (3.5-5.1); PROTEIN TOTAL SERUM 5.2 g/dL (6.0-8.3); SODIUM 142 mmol/L (135-145)
[2016-04-30 04:24] LABS: ARTERIAL BLD GAS O2 SATURATION 97.6 % (90.0-100.0); ARTERIAL BLOOD GAS CARBOXY HB 0.3 %sat (0.0-9.0); ARTERIAL BLOOD GAS HCO3 38.1 mmol/L; ARTERIAL BLOOD GAS MET HB 1.1 %sat (0.0-2.0); ARTERIAL BLOOD GAS PCO2 45.8 mmHg (35.0-45.0); ARTERIAL BLOOD GAS pH 7.528 (7.350-7.450)
[2016-04-30 04:29] LABS: ARTERIAL DRAW? YES
[2016-04-30 04:30] LABS: ARTERIAL BLOOD GAS ART SITE LEFT BRACHIAL; ARTERIAL BLOOD GAS DELIVERY VENT; ARTERIAL BLOOD GAS VENT MODE AC
[2016-04-30 04:36] LABS: HEMATOCRIT 40.8 % (38.0-50.0); HEMOGLOBIN 13.4 gm/dL (13.0-16.0); MEAN CELL VOLUME 91.4 FL (83-96); MEAN CORPUSCULAR HEMOGLOBIN 29.9 PG (28-34); MEAN CORPUSCULAR HGB CONC 32.7 g/dL (30-36); RED BLOOD COUNT 4.47 X10e (3.90-5.60); RED CELL DISTRIBUTION WIDTH 14.5 % (11.0-15.5); WHITE BLOOD COUNT 9.3 X10e3 (4.0-10.5)
[2016-04-30 04:57] LABS: ALBUMIN SERUM 3.5 g/dL (3.5-5.0); ALKALINE PHOSPHATASE 35 U/L (32-92); ALT (SGPT) 53 U/L (10-40); AST (SGOT) 21 U/L (10-42); BILIRUBIN,TOTAL 0.4 mg/dL (0.2-2.0); BLOOD UREA NITROGEN 43 mg/dL (9-23); BUN/CREATININE RATIO 53.75; CALCIUM SERUM 9.1 mg/dL (8.4-10.2); CARBON DIOXIDE 36 mmol/L (22-31); CHLORIDE 98 mmol/L (100-111); CREATININE SERUM 0.8 mg/dL (0.6-1.4); GLOM FILT RATE Estimated ABOVE60 mL/min (>60); GLUCOSE FASTING 165 mg/dL (70-110); POTASSIUM 4.2 mmol/L (3.5-5.1); PROTEIN TOTAL SERUM 6.3 g/dL (6.0-8.3); SODIUM 140 mmol/L (135-145)
[2016-05-01 04:01] LABS: ARTERIAL BLD GAS O2 SATURATION 97.8 % (90.0-100.0); ARTERIAL BLOOD GAS HCO3 41.8 mmol/L; ARTERIAL BLOOD GAS MET HB 0.8 %sat (0.0-2.0); ARTERIAL BLOOD GAS pH 7.509 (7.350-7.450)
[2016-05-01 04:12] LABS: ARTERIAL BLOOD GAS ALLEN TEST NORMAL; ARTERIAL BLOOD GAS ART SITE LEFT RADIAL; ARTERIAL BLOOD GAS DELIVERY VENT; ARTERIAL BLOOD GAS PCO2 52.6 mmHg (35.0-45.0); ARTERIAL BLOOD GAS VENT MODE AC; ARTERIAL DRAW? YES
[2016-05-01 05:20] LABS: HEMATOCRIT 39.7 % (38.0-50.0); HEMOGLOBIN 13.3 gm/dL (13.0-16.0); MEAN CELL VOLUME 91.2 FL (83-96); MEAN CORPUSCULAR HEMOGLOBIN 30.5 PG (28-34); MEAN CORPUSCULAR HGB CONC 33.4 g/dL (30-36); MEAN PLATELET VOLUME 8.2 FL (6.5-11.5); RED BLOOD COUNT 4.35 X10e (3.90-5.60); RED CELL DISTRIBUTION WIDTH 14.9 % (11.0-15.5); WHITE BLOOD COUNT 10.4 X10e3 (4.0-10.5)
[2016-05-01 06:39] LABS: ALBUMIN SERUM 3.4 g/dL (3.5-5.0); ALKALINE PHOSPHATASE 31 U/L (32-92); ALT (SGPT) 46 U/L (10-40); AST (SGOT) 26 U/L (10-42); BILIRUBIN,TOTAL 0.3 mg/dL (0.2-2.0); BLOOD UREA NITROGEN 39 mg/dL (9-23); BUN/CREATININE RATIO 48.75; CALCIUM SERUM 9.1 mg/dL (8.4-10.2); CARBON DIOXIDE 38 mmol/L (22-31); CHLORIDE 95 mmol/L (100-111); CREATININE SERUM 0.8 mg/dL (0.6-1.4); GLOM FILT RATE Estimated ABOVE60 mL/min (>60); GLUCOSE FASTING 183 mg/dL (70-110); POTASSIUM 4.3 mmol/L (3.5-5.1); PROTEIN TOTAL SERUM 6.1 g/dL (6.0-8.3); SODIUM 142 mmol/L (135-145)
[2016-05-01 16:09] LABS: ARTERIAL BLD GAS O2 SATURATION 96.2 % (90.0-100.0); ARTERIAL BLOOD GAS CARBOXY HB 0.2 %sat (0.0-9.0); ARTERIAL BLOOD GAS HCO3 44.1 mmol/L; ARTERIAL BLOOD GAS MET HB 0.8 %sat (0.0-2.0); ARTERIAL BLOOD GAS PO2 90.9 mmHg (80.0-100); ARTERIAL BLOOD GAS pH 7.467 (7.350-7.450)
[2016-05-01 16:10] LABS: ARTERIAL BLOOD GAS ART SITE RIGHT RADIAL; ARTERIAL BLOOD GAS DELIVERY VENT; ARTERIAL BLOOD GAS VENT MODE CPAP; ARTERIAL DRAW? YES
[2016-05-02 07:30] LABS: ARTERIAL BLD GAS O2 SATURATION 99.4 % (90.0-100.0); ARTERIAL BLOOD GAS CARBOXY HB 1.8 %sat (0.0-9.0); ARTERIAL BLOOD GAS HCO3 45.5 mmol/L; ARTERIAL BLOOD GAS pH 7.471 (7.350-7.450)
[2016-05-02 07:31] LABS: ARTERIAL BLOOD GAS ALLEN TEST NORMAL; ARTERIAL BLOOD GAS ART SITE RIGHT RADIAL; ARTERIAL BLOOD GAS DELIVERY VENTURI MASK; ARTERIAL BLOOD GAS PCO2 62.4 mmHg (35.0-45.0); ARTERIAL DRAW? YES
[2016-05-02 08:24] LABS: HEMATOCRIT 39.8 % (38.0-50.0); HEMOGLOBIN 13.1 gm/dL (13.0-16.0); MEAN CELL VOLUME 91.4 FL (83-96); MEAN CORPUSCULAR HGB CONC 32.9 g/dL (30-36); MEAN PLATELET VOLUME 7.6 FL (6.5-11.5); RED BLOOD COUNT 4.35 X10e (3.90-5.60); RED CELL DISTRIBUTION WIDTH 14.5 % (11.0-15.5)
[2016-05-02 08:26] LABS: WHITE BLOOD COUNT 16.8 X10e3 (4.0-10.5)
[2016-05-02 08:42] LABS: MAGNESIUM 2.7 mg/dL (1.6-3.0); PHOSPHOROUS 4.3 mg/dL (2.5-4.6)
[2016-05-02 08:43] LABS: BLOOD UREA NITROGEN 37 mg/dL (9-23); BUN/CREATININE RATIO 52.85; CALCIUM SERUM 8.5 mg/dL (8.4-10.2); CARBON DIOXIDE 40 mmol/L (22-31); CHLORIDE 95 mmol/L (100-111); CREATININE SERUM 0.7 mg/dL (0.6-1.4); GLOM FILT RATE Estimated ABOVE60 mL/min (>60); GLUCOSE FASTING 154 mg/dL (70-110); POTASSIUM 4.6 mmol/L (3.5-5.1); SODIUM 136 mmol/L (135-145)
[2016-05-02 10:25] LABS: URINE APPEARANCE CLEAR; URINE BILIRUBIN NEG (NEG); URINE BLOOD 3+ (NEG); URINE COLOR YELLOW; URINE GLUCOSE NORM (NORM); URINE KETONE NEG (NEG); URINE LEUKOCYTE ESTERASE NEG (NEG); URINE NITRATE NEG (NEG); URINE PROTEIN NEG (NEG); URINE UROBILINOGEN NORM (NORM)
[2016-05-02 10:41] LABS: U HYALINE CASTS AUWI 0-2 /[LPF]; URBCS1 AUWI 25-50 /[HPF] (0-2); URINE AMORPHOUS SEDIMENT AMORP PHOSPHATES; URINE GRANULAR CAST 0-2 /[HPF]; UWBCS1 AUWI 0-2 (0-5)
[2016-05-03 05:37] LABS: HEMATOCRIT 40.9 % (38.0-50.0); HEMOGLOBIN 13.3 gm/dL (13.0-16.0); MEAN CELL VOLUME 91.6 FL (83-96); MEAN CORPUSCULAR HEMOGLOBIN 29.9 PG (28-34); MEAN CORPUSCULAR HGB CONC 32.6 g/dL (30-36); MEAN PLATELET VOLUME 7.9 FL (6.5-11.5); RED BLOOD COUNT 4.47 X10e (3.90-5.60); WHITE BLOOD COUNT 14.9 X10e3 (4.0-10.5)
[2016-05-03 06:21] LABS: BLOOD UREA NITROGEN 32 mg/dL (9-23); BUN/CREATININE RATIO 45.71; CARBON DIOXIDE 36 mmol/L (22-31); CHLORIDE 100 mmol/L (100-111); CREATININE SERUM 0.7 mg/dL (0.6-1.4); GLOM FILT RATE Estimated ABOVE60 mL/min (>60); GLUCOSE FASTING 118 mg/dL (70-110); SODIUM 141 mmol/L (135-145)
[2016-05-04 06:03] LABS: BASOPHIL% 0.2 % (0-2.5); EOSINOPHIL# 0.2 X10e3 (0-0.7); EOSINOPHIL% 1.2 % (0.0-7.0); HEMOGLOBIN 13.4 gm/dL (13.0-16.0); LYMPHOCYTE# 1.9 X10e3 (1.0-3.5); LYMPHOCYTE% 12.8 % (17.0-45.0); MEAN CELL VOLUME 92.2 FL (83-96); MEAN CORPUSCULAR HEMOGLOBIN 29.4 PG (28-34); MEAN CORPUSCULAR HGB CONC 31.9 g/dL (30-36); MEAN PLATELET VOLUME 7.7 FL (6.5-11.5); MONOCYTE# 1.5 X10e3 (0-1.0); MONOCYTE% 10.2 % (3.0-12.0); NEUTROPHIL# 11.5 X10e3 (1.5-7.1); NEUTROPHIL% 75.6 % (40-75); PLATELET COUNT 225 X10e3 (140-420); RED BLOOD COUNT 4.55 X10e (3.90-5.60); RED CELL DISTRIBUTION WIDTH 13.9 % (11.0-15.5); WHITE BLOOD COUNT 15.2 X10e3 (4.0-10.5)
[2016-05-04 06:05] LABS: DIFF IND YES
[2016-05-04 06:34] LABS: PLATELET ESTIMATE NORMAL (NORMAL); RBC NORMAL YES
[2016-05-04 07:12] LABS: BLOOD UREA NITROGEN 34 mg/dL (9-23); BUN/CREATININE RATIO 56.66; CARBON DIOXIDE 36 mmol/L (22-31); CHLORIDE 100 mmol/L (100-111); CREATININE SERUM 0.6 mg/dL (0.6-1.4); GLOM FILT RATE Estimated ABOVE60 mL/min (>60); GLUCOSE FASTING 126 mg/dL (70-110); MAGNESIUM 2.4 mg/dL (1.6-3.0); PHOSPHOROUS 4.2 mg/dL (2.5-4.6); POTASSIUM 3.6 mmol/L (3.5-5.1); SODIUM 144 mmol/L (135-145)
[2016-05-04 16:48] LABS: ARTERIAL BLD GAS O2 SATURATION 93.6 % (90.0-100.0); ARTERIAL BLOOD GAS CARBOXY HB 0.6 %sat (0.0-9.0); ARTERIAL BLOOD GAS HCO3 40.2 mmol/L; ARTERIAL BLOOD GAS MET HB 0.7 %sat (0.0-2.0); ARTERIAL BLOOD GAS pH 7.406 (7.350-7.450)
[2016-05-04 16:49] LABS: ARTERIAL BLOOD GAS ART SITE RIGHT RADIAL; ARTERIAL BLOOD GAS DELIVERY NASAL CANNULA; ARTERIAL BLOOD GAS PCO2 64.1 mmHg (35.0-45.0); ARTERIAL BLOOD GAS PO2 71.7 mmHg (80.0-100); ARTERIAL DRAW? YES
[2016-05-05 08:34] LABS: BASOPHIL# 0.3 X10e3 (0-0.3); BASOPHIL% 1.3 % (0-2.5); DIFF IND NO; EOSINOPHIL# 0.1 X10e3 (0-0.7); EOSINOPHIL% 0.3 % (0.0-7.0); HEMATOCRIT 41.7 % (38.0-50.0); HEMOGLOBIN 13.2 gm/dL (13.0-16.0); LYMPHOCYTE# 0.4 X10e3 (1.0-3.5); MEAN CELL VOLUME 92.5 FL (83-96); MEAN CORPUSCULAR HEMOGLOBIN 29.4 PG (28-34); MEAN CORPUSCULAR HGB CONC 31.8 g/dL (30-36); MEAN PLATELET VOLUME 7.7 FL (6.5-11.5); MONOCYTE# 0.5 X10e3 (0-1.0); MONOCYTE% 2.2 % (3.0-12.0); NEUTROPHIL# 20.1 X10e3 (1.5-7.1); NEUTROPHIL% 94.2 % (40-75); PLATELET COUNT 196 X10e3 (140-420); RED CELL DISTRIBUTION WIDTH 14.2 % (11.0-15.5); WHITE BLOOD COUNT 21.3 X10e3 (4.0-10.5)
[2016-05-05 09:03] LABS: BLOOD UREA NITROGEN 31 mg/dL (9-23); BUN/CREATININE RATIO 51.66; CALCIUM SERUM 8.9 mg/dL (8.4-10.2); CARBON DIOXIDE 37 mmol/L (22-31); CHLORIDE 98 mmol/L (100-111); CREATININE SERUM 0.6 mg/dL (0.6-1.4); GLOM FILT RATE Estimated ABOVE60 mL/min (>60); GLUCOSE FASTING 189 mg/dL (70-110); POTASSIUM 4.1 mmol/L (3.5-5.1); SODIUM 143 mmol/L (135-145)
[2016-05-06 06:02] LABS: BASOPHIL# 0.1 X10e3 (0-0.3); BASOPHIL% 0.3 % (0-2.5); EOSINOPHIL# 0.2 X10e3 (0-0.7); HEMATOCRIT 37.4 % (38.0-50.0); HEMOGLOBIN 12.1 gm/dL (13.0-16.0); LYMPHOCYTE# 1.3 X10e3 (1.0-3.5); MEAN CELL VOLUME 92.8 FL (83-96); MEAN CORPUSCULAR HGB CONC 32.3 g/dL (30-36); MEAN PLATELET VOLUME 7.9 FL (6.5-11.5); MONOCYTE# 1.3 X10e3 (0-1.0); MONOCYTE% 6.7 % (3.0-12.0); NEUTROPHIL# 15.9 X10e3 (1.5-7.1); PLATELET COUNT 176 X10e3 (140-420); RED BLOOD COUNT 4.03 X10e (3.90-5.60); RED CELL DISTRIBUTION WIDTH 13.9 % (11.0-15.5); WHITE BLOOD COUNT 18.7 X10e3 (4.0-10.5)
[2016-05-06 06:04] LABS: DIFF IND NO
[2016-05-06 06:59] LABS: BLOOD UREA NITROGEN 25 mg/dL (9-23); BUN/CREATININE RATIO 41.66; CALCIUM SERUM 8.9 mg/dL (8.4-10.2); CARBON DIOXIDE 38 mmol/L (22-31); CHLORIDE 98 mmol/L (100-111); CREATININE SERUM 0.6 mg/dL (0.6-1.4); GLOM FILT RATE Estimated ABOVE60 mL/min (>60); GLUCOSE FASTING 125 mg/dL (70-110); POTASSIUM 3.6 mmol/L (3.5-5.1); SODIUM 144 mmol/L (135-145)
[2016-05-06 10:36] LABS: ARTERIAL BLD GAS O2 SATURATION 89.8 % (90.0-100.0); ARTERIAL BLOOD GAS CARBOXY HB 0.8 %sat (0.0-9.0); ARTERIAL BLOOD GAS HCO3 39.9 mmol/L; ARTERIAL BLOOD GAS MET HB 0.7 %sat (0.0-2.0); ARTERIAL BLOOD GAS pH 7.377 (7.350-7.450)
[2016-05-06 10:37] LABS: ARTERIAL BLOOD GAS ALLEN TEST NORMAL; ARTERIAL BLOOD GAS ART SITE LEFT RADIAL; ARTERIAL BLOOD GAS DELIVERY VENTURI MASK; ARTERIAL BLOOD GAS PO2 61.1 mmHg (80.0-100); ARTERIAL DRAW? YES
[2016-05-07 04:43] LABS: ARTERIAL BLD GAS O2 SATURATION 88.2 % (90.0-100.0); ARTERIAL BLOOD GAS CARBOXY HB 0.9 %sat (0.0-9.0); ARTERIAL BLOOD GAS MET HB 0.5 %sat (0.0-2.0); ARTERIAL BLOOD GAS pH 7.291 (7.350-7.450)
[2016-05-07 04:56] LABS: ARTERIAL BLOOD GAS ALLEN TEST NORMAL; ARTERIAL BLOOD GAS PCO2 89.4 mmHg (35.0-45.0); ARTERIAL BLOOD GAS PO2 60.7 mmHg (80.0-100); ARTERIAL DRAW? YES
[2016-05-07 04:57] LABS: ARTERIAL BLOOD GAS ART SITE RIGHT RADIAL; ARTERIAL BLOOD GAS DELIVERY VENTURI MASK
[2016-05-07 05:30] LABS: HEMATOCRIT 35.6 % (38.0-50.0); HEMOGLOBIN 11.5 gm/dL (13.0-16.0); MEAN CELL VOLUME 93.9 FL (83-96); MEAN CORPUSCULAR HEMOGLOBIN 30.3 PG (28-34); MEAN CORPUSCULAR HGB CONC 32.3 g/dL (30-36); MEAN PLATELET VOLUME 8.7 FL (6.5-11.5); RED BLOOD COUNT 3.79 X10e (3.90-5.60); RED CELL DISTRIBUTION WIDTH 13.8 % (11.0-15.5); WHITE BLOOD COUNT 17.9 X10e3 (4.0-10.5)
[2016-05-07 06:07] LABS: BLOOD UREA NITROGEN 31 mg/dL (9-23); BUN/CREATININE RATIO 44.28; CALCIUM SERUM 8.6 mg/dL (8.4-10.2); CARBON DIOXIDE 40 mmol/L (22-31); CHLORIDE 97 mmol/L (100-111); CREATININE SERUM 0.7 mg/dL (0.6-1.4); GLOM FILT RATE Estimated ABOVE60 mL/min (>60); GLUCOSE FASTING 153 mg/dL (70-110); SODIUM 142 mmol/L (135-145)
[2016-05-07 09:09] LABS: ARTERIAL BLD GAS O2 SATURATION 92.4 % (90.0-100.0); ARTERIAL BLOOD GAS CARBOXY HB 0.7 %sat (0.0-9.0); ARTERIAL BLOOD GAS HCO3 43.2 mmol/L; ARTERIAL BLOOD GAS MET HB 0.9 %sat (0.0-2.0)
[2016-05-07 09:12] LABS: ARTERIAL BLOOD GAS ALLEN TEST NORMAL; ARTERIAL BLOOD GAS ART SITE RIGHT RADIAL; ARTERIAL BLOOD GAS DELIVERY BIPAP 14/6; ARTERIAL BLOOD GAS PCO2 78.3 mmHg (35.0-45.0); ARTERIAL BLOOD GAS PO2 68.6 mmHg (80.0-100); ARTERIAL DRAW? YES
[2016-05-08 03:45] LABS: ARTERIAL BLD GAS O2 SATURATION 91.7 % (90.0-100.0); ARTERIAL BLOOD GAS CARBOXY HB 0.9 %sat (0.0-9.0); ARTERIAL BLOOD GAS HCO3 42.5 mmol/L; ARTERIAL BLOOD GAS MET HB 0.9 %sat (0.0-2.0); ARTERIAL BLOOD GAS pH 7.398 (7.350-7.450)
[2016-05-08 03:51] LABS: ARTERIAL BLOOD GAS ALLEN TEST NORMAL; ARTERIAL BLOOD GAS ART SITE RIGHT RADIAL; ARTERIAL BLOOD GAS DELIVERY BIPAP 14/6; ARTERIAL BLOOD GAS PCO2 68.9 mmHg (35.0-45.0); ARTERIAL BLOOD GAS PO2 62.2 mmHg (80.0-100); ARTERIAL DRAW? YES
[2016-05-08 05:57] LABS: BASOPHIL% 0.3 % (0-2.5); EOSINOPHIL# 0.1 X10e3 (0-0.7); EOSINOPHIL% 0.8 % (0.0-7.0); HEMATOCRIT 32.9 % (38.0-50.0); HEMOGLOBIN 10.6 gm/dL (13.0-16.0); LYMPHOCYTE# 1.1 X10e3 (1.0-3.5); LYMPHOCYTE% 8.4 % (17.0-45.0); MEAN CELL VOLUME 93.2 FL (83-96); MEAN CORPUSCULAR HEMOGLOBIN 30.1 PG (28-34); MEAN CORPUSCULAR HGB CONC 32.3 g/dL (30-36); MEAN PLATELET VOLUME 8.8 FL (6.5-11.5); MONOCYTE# 0.8 X10e3 (0-1.0); MONOCYTE% 5.7 % (3.0-12.0); NEUTROPHIL# 11.3 X10e3 (1.5-7.1); NEUTROPHIL% 84.8 % (40-75); PLATELET COUNT 175 X10e3 (140-420); RED BLOOD COUNT 3.53 X10e (3.90-5.60); RED CELL DISTRIBUTION WIDTH 13.9 % (11.0-15.5); WHITE BLOOD COUNT 13.3 X10e3 (4.0-10.5)
[2016-05-08 05:58] LABS: DIFF IND NO
[2016-05-08 07:17] LABS: BLOOD UREA NITROGEN 27 mg/dL (9-23); BUN/CREATININE RATIO 38.57; CALCIUM SERUM 8.5 mg/dL (8.4-10.2); CARBON DIOXIDE 39 mmol/L (22-31); CHLORIDE 98 mmol/L (100-111); CREATININE SERUM 0.7 mg/dL (0.6-1.4); GLOM FILT RATE Estimated ABOVE60 mL/min (>60); GLUCOSE FASTING 142 mg/dL (70-110); POTASSIUM 3.9 mmol/L (3.5-5.1); SODIUM 143 mmol/L (135-145)
[2016-05-09 05:23] LABS: BASOPHIL# 0.1 X10e3 (0-0.3); BASOPHIL% 0.5 % (0-2.5); EOSINOPHIL# 0.1 X10e3 (0-0.7); EOSINOPHIL% 0.6 % (0.0-7.0); HEMATOCRIT 31.9 % (38.0-50.0); HEMOGLOBIN 10.4 gm/dL (13.0-16.0); LYMPHOCYTE# 1.1 X10e3 (1.0-3.5); LYMPHOCYTE% 10.5 % (17.0-45.0); MEAN CELL VOLUME 92.7 FL (83-96); MEAN CORPUSCULAR HEMOGLOBIN 30.2 PG (28-34); MEAN CORPUSCULAR HGB CONC 32.6 g/dL (30-36); MONOCYTE# 0.7 X10e3 (0-1.0); MONOCYTE% 6.4 % (3.0-12.0); NEUTROPHIL# 8.4 X10e3 (1.5-7.1); PLATELET COUNT 204 X10e3 (140-420); RED BLOOD COUNT 3.44 X10e (3.90-5.60); RED CELL DISTRIBUTION WIDTH 13.8 % (11.0-15.5); WHITE BLOOD COUNT 10.3 X10e3 (4.0-10.5)
[2016-05-09 05:31] LABS: DIFF IND NO
[2016-05-09 06:21] LABS: BLOOD UREA NITROGEN 24 mg/dL (9-23); CALCIUM SERUM 8.9 mg/dL (8.4-10.2); CARBON DIOXIDE 38 mmol/L (22-31); CHLORIDE 100 mmol/L (100-111); CREATININE SERUM 0.6 mg/dL (0.6-1.4); GLOM FILT RATE Estimated ABOVE60 mL/min (>60); GLUCOSE FASTING 132 mg/dL (70-110); POTASSIUM 3.9 mmol/L (3.5-5.1); SODIUM 146 mmol/L (135-145)
[2016-05-09 08:49] LABS: CK TOTAL 38 IU/L (36-174)
[2016-05-09 10:33] LABS: CHOLESTEROL 111 mg/dL (0-200); HDL CHOLESTEROL 19 mg/dL (29-75); LDL CHOLESTEROL 78 mg/dL (-130); LDL/HDL RATIO 4 RATIO (0-4); TRIGLYCERIDES 70 mg/dL (10-160)
[2016-05-10 05:21] LABS: BASOPHIL% 0.3 % (0-2.5); EOSINOPHIL# 0.1 X10e3 (0-0.7); EOSINOPHIL% 1.2 % (0.0-7.0); HEMATOCRIT 31.4 % (38.0-50.0); HEMOGLOBIN 10.2 gm/dL (13.0-16.0); LYMPHOCYTE# 1.2 X10e3 (1.0-3.5); LYMPHOCYTE% 13.9 % (17.0-45.0); MEAN CELL VOLUME 92.7 FL (83-96); MEAN CORPUSCULAR HEMOGLOBIN 30.3 PG (28-34); MEAN CORPUSCULAR HGB CONC 32.6 g/dL (30-36); MEAN PLATELET VOLUME 8.8 FL (6.5-11.5); MONOCYTE# 0.7 X10e3 (0-1.0); MONOCYTE% 7.7 % (3.0-12.0); NEUTROPHIL# 6.8 X10e3 (1.5-7.1); NEUTROPHIL% 76.9 % (40-75); PLATELET COUNT 219 X10e3 (140-420); RED BLOOD COUNT 3.38 X10e (3.90-5.60); RED CELL DISTRIBUTION WIDTH 13.8 % (11.0-15.5); WHITE BLOOD COUNT 8.9 X10e3 (4.0-10.5)
[2016-05-10 05:40] LABS: DIFF IND NO
[2016-05-10 06:42] LABS: BLOOD UREA NITROGEN 21 mg/dL (9-23); CALCIUM SERUM 8.7 mg/dL (8.4-10.2); CARBON DIOXIDE 40 mmol/L (22-31); CHLORIDE 94 mmol/L (100-111); CREATININE SERUM 0.5 mg/dL (0.6-1.4); GLOM FILT RATE Estimated ABOVE60 mL/min (>60); GLUCOSE FASTING 133 mg/dL (70-110); PHOSPHOROUS 3.4 mg/dL (2.5-4.6); POTASSIUM 3.8 mmol/L (3.5-5.1); SODIUM 141 mmol/L (135-145)
[2016-05-11 05:52] LABS: BASOPHIL% 0.4 % (0-2.5); EOSINOPHIL# 0.1 X10e3 (0-0.7); EOSINOPHIL% 0.9 % (0.0-7.0); HEMATOCRIT 31.1 % (38.0-50.0); HEMOGLOBIN 10.2 gm/dL (13.0-16.0); LYMPHOCYTE# 1.2 X10e3 (1.0-3.5); LYMPHOCYTE% 14.4 % (17.0-45.0); MEAN CELL VOLUME 91.7 FL (83-96); MEAN CORPUSCULAR HGB CONC 32.7 g/dL (30-36); MEAN PLATELET VOLUME 8.7 FL (6.5-11.5); MONOCYTE# 0.5 X10e3 (0-1.0); MONOCYTE% 6.6 % (3.0-12.0); NEUTROPHIL# 6.4 X10e3 (1.5-7.1); NEUTROPHIL% 77.7 % (40-75); PLATELET COUNT 233 X10e3 (140-420); RED BLOOD COUNT 3.39 X10e (3.90-5.60); RED CELL DISTRIBUTION WIDTH 13.7 % (11.0-15.5); WHITE BLOOD COUNT 8.3 X10e3 (4.0-10.5)
[2016-05-11 05:59] LABS: DIFF IND NO
[2016-05-11 06:38] LABS: BLOOD UREA NITROGEN 24 mg/dL (9-23); CALCIUM SERUM 8.6 mg/dL (8.4-10.2); CARBON DIOXIDE 41 mmol/L (22-31); CHLORIDE 92 mmol/L (100-111); CREATININE SERUM 0.8 mg/dL (0.6-1.4); GLOM FILT RATE Estimated ABOVE60 mL/min (>60); GLUCOSE FASTING 124 mg/dL (70-110); POTASSIUM 3.6 mmol/L (3.5-5.1); SODIUM 138 mmol/L (135-145)
[2016-05-12 04:45] LABS: BASOPHIL% 0.3 % (0-2.5); EOSINOPHIL# 0.1 X10e3 (0-0.7); EOSINOPHIL% 0.7 % (0.0-7.0); HEMATOCRIT 30.7 % (38.0-50.0); HEMOGLOBIN 9.9 gm/dL (13.0-16.0); LYMPHOCYTE# 1.3 X10e3 (1.0-3.5); LYMPHOCYTE% 16.8 % (17.0-45.0); MEAN CELL VOLUME 91.9 FL (83-96); MEAN CORPUSCULAR HEMOGLOBIN 29.6 PG (28-34); MEAN CORPUSCULAR HGB CONC 32.2 g/dL (30-36); MEAN PLATELET VOLUME 8.9 FL (6.5-11.5); MONOCYTE# 0.6 X10e3 (0-1.0); NEUTROPHIL% 75.2 % (40-75); PLATELET COUNT 246 X10e3 (140-420); RED BLOOD COUNT 3.34 X10e (3.90-5.60); RED CELL DISTRIBUTION WIDTH 13.6 % (11.0-15.5)
[2016-05-12 04:49] LABS: INR 1.1; PROTHROMBIN TIME (PATIENT) 11.5 SECONDS (9.6-11.5)
[2016-05-12 05:02] LABS: BLOOD UREA NITROGEN 19 mg/dL (9-23); BUN/CREATININE RATIO 31.66; CALCIUM SERUM 8.5 mg/dL (8.4-10.2); CARBON DIOXIDE 35 mmol/L (22-31); CHLORIDE 98 mmol/L (100-111); CREATININE SERUM 0.6 mg/dL (0.6-1.4); GLOM FILT RATE Estimated ABOVE60 mL/min (>60); GLUCOSE FASTING 95 mg/dL (70-110); POTASSIUM 3.9 mmol/L (3.5-5.1); SODIUM 138 mmol/L (135-145)
[2016-05-12 05:19] LABS: DIFF IND NO
[2016-05-13 04:29] LABS: BASOPHIL% 0.3 % (0-2.5); DIFF IND NO; EOSINOPHIL% 0.6 % (0.0-7.0); HEMATOCRIT 29.8 % (38.0-50.0); LYMPHOCYTE% 13.8 % (17.0-45.0); MEAN CELL VOLUME 91.3 FL (83-96); MEAN CORPUSCULAR HEMOGLOBIN 30.8 PG (28-34); MEAN CORPUSCULAR HGB CONC 33.7 g/dL (30-36); MEAN PLATELET VOLUME 8.7 FL (6.5-11.5); MONOCYTE# 0.6 X10e3 (0-1.0); MONOCYTE% 7.6 % (3.0-12.0); NEUTROPHIL# 5.9 X10e3 (1.5-7.1); NEUTROPHIL% 77.7 % (40-75); PLATELET COUNT 256 X10e3 (140-420); RED BLOOD COUNT 3.26 X10e (3.90-5.60); WHITE BLOOD COUNT 7.5 X10e3 (4.0-10.5)
[2016-05-13 04:55] LABS: BLOOD UREA NITROGEN 18 mg/dL (9-23); CALCIUM SERUM 8.4 mg/dL (8.4-10.2); CARBON DIOXIDE 33 mmol/L (22-31); CHLORIDE 99 mmol/L (100-111); CREATININE SERUM 0.6 mg/dL (0.6-1.4); GLOM FILT RATE Estimated ABOVE60 mL/min (>60); GLUCOSE FASTING 123 mg/dL (70-110); POTASSIUM 3.7 mmol/L (3.5-5.1); SODIUM 139 mmol/L (135-145)
[2016-05-14 04:54] LABS: BLOOD UREA NITROGEN 17 mg/dL (9-23); BUN/CREATININE RATIO 28.33; CALCIUM SERUM 8.3 mg/dL (8.4-10.2); CARBON DIOXIDE 32 mmol/L (22-31); CHLORIDE 105 mmol/L (100-111); CREATININE SERUM 0.6 mg/dL (0.6-1.4); GLOM FILT RATE Estimated ABOVE60 mL/min (>60); GLUCOSE FASTING 91 mg/dL (70-110); POTASSIUM 3.7 mmol/L (3.5-5.1); SODIUM 140 mmol/L (135-145)
[2016-05-15 08:34] LABS: HEMATOCRIT 30.3 % (38.0-50.0); HEMOGLOBIN 10.3 gm/dL (13.0-16.0); MEAN CELL VOLUME 91.5 FL (83-96); MEAN CORPUSCULAR HGB CONC 33.9 g/dL (30-36); MEAN PLATELET VOLUME 8.3 FL (6.5-11.5); RED BLOOD COUNT 3.31 X10e (3.90-5.60); RED CELL DISTRIBUTION WIDTH 14.4 % (11.0-15.5); WHITE BLOOD COUNT 7.8 X10e3 (4.0-10.5)
[2016-05-15 08:45] LABS: INR 1.1; PROTHROMBIN TIME (PATIENT) 11.8 SECONDS (9.6-11.5)
[2016-05-15 09:11] LABS: BLOOD UREA NITROGEN 15 mg/dL (9-23); CALCIUM SERUM 8.5 mg/dL (8.4-10.2); CARBON DIOXIDE 30 mmol/L (22-31); CHLORIDE 105 mmol/L (100-111); CREATININE SERUM 0.6 mg/dL (0.6-1.4); GLOM FILT RATE Estimated ABOVE60 mL/min (>60); GLUCOSE FASTING 112 mg/dL (70-110); POTASSIUM 3.7 mmol/L (3.5-5.1); SODIUM 137 mmol/L (135-145)
[2016-05-16 06:55] LABS: HEMATOCRIT 29.1 % (38.0-50.0); HEMOGLOBIN 9.6 gm/dL (13.0-16.0); MEAN CELL VOLUME 91.9 FL (83-96); MEAN CORPUSCULAR HEMOGLOBIN 30.3 PG (28-34); MEAN PLATELET VOLUME 8.6 FL (6.5-11.5); RED BLOOD COUNT 3.17 X10e (3.90-5.60); RED CELL DISTRIBUTION WIDTH 14.4 % (11.0-15.5); WHITE BLOOD COUNT 6.4 X10e3 (4.0-10.5)
[2016-05-16 07:19] LABS: BLOOD UREA NITROGEN 13 mg/dL (9-23); BUN/CREATININE RATIO 21.66; CALCIUM SERUM 8.6 mg/dL (8.4-10.2); CARBON DIOXIDE 29 mmol/L (22-31); CHLORIDE 101 mmol/L (100-111); CREATININE SERUM 0.6 mg/dL (0.6-1.4); GLOM FILT RATE Estimated ABOVE60 mL/min (>60); GLUCOSE FASTING 87 mg/dL (70-110); POTASSIUM 3.3 mmol/L (3.5-5.1); SODIUM 137 mmol/L (135-145)
[2016-05-16 07:25] LABS: INR 1.1; PARTIAL THROMBOPLASTIN TIME 24.4 SECONDS (23.5-31.3); PROTHROMBIN TIME (PATIENT) 11.3 SECONDS (9.6-11.5)
[2016-05-16 08:42] LABS: ARTERIAL BLD GAS O2 SATURATION 89.8 % (90.0-100.0); ARTERIAL BLOOD GAS CARBOXY HB 0.6 %sat (0.0-9.0); ARTERIAL BLOOD GAS HCO3 29.5 mmol/L; ARTERIAL BLOOD GAS MET HB 0.5 %sat (0.0-2.0); ARTERIAL BLOOD GAS PCO2 39.9 mmHg (35.0-45.0); ARTERIAL BLOOD GAS pH 7.476 (7.350-7.450)
[2016-05-16 08:44] LABS: ARTERIAL BLOOD GAS ALLEN TEST NORMAL; ARTERIAL BLOOD GAS ART SITE RIGHT RADIAL; ARTERIAL BLOOD GAS PO2 56.4 mmHg (80.0-100); ARTERIAL DRAW? YES
[2016-05-16 08:45] LABS: ARTERIAL BLOOD GAS DELIVERY OXYMIZER
== END 2016-05-17 19:05 | DRG 207 ==
LOC: CED 11:53 → CEDOF 13:20 → C2A 15:14 → CICCU2 04-24 20:21 → C5B 05-06 01:41 → C5C 05-06 04:58 → CICCU2 05-06 13:11 → C3A PCU 05-14 07:10
PROVIDERS: Emergency Medicine; Hospitalist; Internal Medicine; Internal Medicine Cardiovascular Disease; Internal Medicine Pulmonary Disease; Internal Medicine Sleep Medicine; Nurse Practitioner; Physician Assistant Medical; Student in an Organized Health Care Education/Training Program
PROC: 0BH17EZ Insertion of Endotracheal Airway into Trachea, Via Natural or Artificial Opening (ICD-10-PCS; principal; 2016-04-24)
PROC: 5A1955Z Respiratory Ventilation, Greater than 96 Consecutive Hours (ICD-10-PCS; 2016-04-24)
PROC: 02HV33Z Insertion of Infusion Device into Superior Vena Cava, Percutaneous Approach (ICD-10-PCS; 2016-04-24)
PROC: 0D9670Z Drainage of Stomach with Drainage Device, Via Natural or Artificial Opening (ICD-10-PCS; 2016-05-03)
PROC: B24BYZZ Ultrasonography of Heart with Aorta using Other Contrast (ICD-10-PCS; 2016-05-09)
PROC: 4A023N7 Measurement of Cardiac Sampling and Pressure, Left Heart, Percutaneous Approach (ICD-10-PCS; 2016-05-12)
PROC: B211YZZ Fluoroscopy of Multiple Coronary Arteries using Other Contrast (ICD-10-PCS; 2016-05-12)
PROC: B215YZZ Fluoroscopy of Left Heart using Other Contrast (ICD-10-PCS; 2016-05-12)
PROC: B32TYZZ Computerized Tomography (CT Scan) of Left Pulmonary Artery using Other Contrast (ICD-10-PCS; 2016-05-16)
PROC: B32SYZZ Computerized Tomography (CT Scan) of Right Pulmonary Artery using Other Contrast (ICD-10-PCS; 2016-05-16)
DX: J96.21 Acute and chronic respiratory failure with hypoxia (principal); I21.4 Non-ST elevation (NSTEMI) myocardial infarction; J69.0 Pneumonitis due to inhalation of food and vomit; G92 Toxic encephalopathy; J14 Pneumonia due to Hemophilus influenzae; I47.2 Ventricular tachycardia; E87.2 Acidosis; I95.9 Hypotension, unspecified; J10.08 Influenza due to other identified influenza virus with other specified pneumonia; J44.1 Chronic obstructive pulmonary disease with (acute) exacerbation; E87.1 Hypo-osmolality and hyponatremia; N17.9 Acute kidney failure, unspecified; J44.0 Chronic obstructive pulmonary disease with (acute) lower respiratory infection; I42.6 Alcoholic cardiomyopathy; J96.22 Acute and chronic respiratory failure with hypercapnia; I73.9 Peripheral vascular disease, unspecified; I10 Essential (primary) hypertension; E78.5 Hyperlipidemia, unspecified; M19.90 Unspecified osteoarthritis, unspecified site; Z96.641 Presence of right artificial hip joint; Z87.891 Personal history of nicotine dependence; J20.9 Acute bronchitis, unspecified; D72.829 Elevated white blood cell count, unspecified; T38.0X5A Adverse effect of glucocorticoids and synthetic analogues, initial encounter; I25.10 Atherosclerotic heart disease of native coronary artery without angina pectoris; F10.20 Alcohol dependence, uncomplicated
CPT/HCPCS: 36415; 36600; 70450; 71010; 71250; 71275; 74000; 74230; 74340; 80048; 80053; 80061; 80076; 81003; 82140; 82308; 82550; 82553; 82803; 82947; 83735; 83880; 84100; 84132; 84443; 84484; 85025; 85027; 85379; 85610; 85730; 87070; 87077; 87205; 87804; 92526; 92610; 92611; 93005; 93306; 94002; 94003; 94640; 94660; 94664; 94667; 94668; 94760; 94761; 94762; 96374; 97110; 97116; 97163; 97167; 97530; 97535; 99291; C1769; C1887; C1894; C9113; G8996-GN; G8997-GN; J0360; J0456; J0696; J1644; J1650; J1815; J1940; J2250; J2543; J2920; J2930; J3010; Q9967